=== PATIENT | male | born 1960 | race Caucasian/White ===

== ENCOUNTER 2019-12-24 19:43 | Emergency (ER) | payer OTHER, SELFPAY ==
[2019-12-24 19:45] VITALS: BP 122/86; PULSE 130; RESP 20; TEMP 37.2; O2SAT 97
--- NOTE | 2019-12-24 19:57 | DI.RAD.S_ITS ---
PROCEDURE: XR CHEST 1V INDICATIONS: SOB TECHNIQUE: One view of the chest was acquired. COMPARISON: [facility], CT, CT ABDOMEN PELVIS WO CON, 12/24/2019, 21:01. [facility], CR, CHEST 2 VIEW, 10/23/2017, 18:00. [facility], CR, CHEST 2 VIEW, 02/19/2016, 12:29. FINDINGS: Surgical changes and devices: None. Lungs and pleura: Lungs are clear. No pleural effusions or pneumothorax. Mediastinum: Mediastinal contours appear normal. Heart size is normal. Bones and chest wall: No suspicious bony lesions. Overlying soft tissues appear unremarkable. Left shoulder surgical anchor. Postsurgical change in the right shoulder. IMPRESSION: No acute cardiopulmonary abnormality. Dictated by: Judson Salcido M.D. on 12/24/2019 at 21:40 Approved by: Judson Salcido M.D. on 12/24/2019 at 21:41
--- NOTE | 2019-12-24 19:58 | DI.CT.S_ITS ---
PROCEDURE: CT ABDOMEN PELVIS WO CON INDICATIONS: LLQ pain, history of diverticulitis TECHNIQUE: Noncontrast 5 mm thick sections acquired from the diaphragms to the symphysis. 5 mm coronal and sagittal reformats were then performed. For radiation dose reduction, the following was used: automated exposure control, adjustment of mA and/or kV according to patient size. COMPARISON: [facility], CT, KIDNEY/ URETER/BLADDER, 07/07/2016, 15:07. FINDINGS: Image quality: Excellent. ABDOMEN: Lung bases: Lung bases are clear. Heart size is normal. Trace pericardial fluid. Small hiatal hernia. Solid organs: Liver is normal in size. Hepatic steatosis. Gallbladder is unremarkable. Pancreas is normal in contours. Spleen is normal in size. No adrenal nodules. Moderate left and mild right hydronephrosis. This is improved on the right compared to 2016. There is extensive cortical thickening most pronounced in the left kidney. Left renal collecting system is duplicated. Peritoneum and bowel: Moderate acute inflammatory change at the left colon, (2/41). No loculated fluid collection. There is extensive diverticulosis. No pneumoperitoneum. Nodes and vessels: No retroperitoneal or mesenteric adenopathy by size criteria. Small periportal lymph nodes are unchanged. Aorta and inferior vena cava are normal in caliber. Miscellaneous: Tiny fat-containing periumbilical hernia. PELVIS: Genitourinary: Thickening at the anterior urinary bladder. Irregular bladder contour versus bladder diverticuli. Tethered appearance may be due to prior suprapubic catheter. Miscellaneous: Small fat-containing inguinal hernias. No adenopathy. Bones: No suspicious bony lesions. No vertebral body compression fractures. IMPRESSION: 1. Moderate acute diverticulitis involving the left colon. No abscess. Extensive diverticulosis. Consider followup colonoscopy. 2. Chronic bilateral hydronephrosis. 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 Renal atrophy. 3. Irregular contour of the urinary bladder with mild thickening and tethering anteriorly. This may be related to prior suprapubic catheter. 4. Hepatic steatosis. Dictated by: Judson Salcido M.D. on 12/24/2019 at 21:28 Approved by: Judson Salcido M.D. on 12/24/2019 at 21:39
--- NOTE | 2019-12-24 20:06 | ED.ABDPAIN ---
HPI - Abdominal Pain <Kelle GoldSUNDAY - Last Filed: 12/24/19 22:13> General Chief Complaint: Abdominal Pain Stated Complaint: left sided pain Time Seen by Provider: 12/24/19 19:46 Source: patient Mode of arrival: Ambulatory Limitations: no limitations History of Present Illness HPI narrative: 59-year-old male with history of sarcoidosis, renal insufficiency, and diverticulosis with a few episodes of diverticulitis, presents emergency department for left lower quadrant pain that started 3 days ago. Patient states that he has an appointment scheduled for tomorrow, he talked to his doctor over the phone and they recommended that he be seen in the emergency department. He states the left lower quadrant pain has been worsening especially today. He states it is a dull aching 8/10 that is worse with movement and palpation. He states this feels similar to his past episodes of diverticulitis. Patient also reports shortness of breath over the past few years. He states he was in [facility] in July which resolved his respiratory problems. However, earlier this week he noticed increasing shortness of breath while walking and [employer]. Patient reported experiencing some intermittent chest tightness with his shortness of breath and wheezing, this resolved after he stopped walking and rested. Patient states he has had laboratory work done on Saturday due to his increasing shortness of breath. He usually takes albuterol inhaler which has helped, he has had to take it more recently due to moving back to [place]. He states that the humidity worsens his symptoms. Patient denies any other symptoms such as fever, dizziness, syncope, chest pain at this time, chest tightness at this time, nausea, vomiting, diarrhea, or any other concerns. Related Data Previous Rx's Medication Instructions Recorded ciprofloxacin HCl [Cipro] 500 mg PO BID #20 tab 07/07/16 hydrocodone-acetaminophen 0 tab PO Q6HP PRN #15 tab 07/07/16 ketorolac 10 mg PO Q6HP PRN #20 tab 07/07/16 ondansetron [Zofran ODT] 4 mg SUBLINGUAL Q6HP PRN #20 odt 07/07/16 levofloxacin [Levaquin] 750 mg PO QDAY 5 Days #0 tab 10/24/17 amoxicillin-pot clavulanate 1 tab PO BID 10 Days #20 tab 12/24/19 [Augmentin] Allergies Allergy/AdvReac Type Severity Reaction Status Date / Time lisinopril [LISINOPRIL] Allergy Unknown COUGH Unverified 12/04/17 11:46 Sulfa (Sulfonamide Allergy Unknown RASH Unverified 12/04/17 11:46 Antibiotics) [SULFA (SULFONAMIDE ANTIBIOTICS)] Review of Systems <SUNDAY Torres - Last Filed: 12/24/19 22:13> Review of Systems Narrative: REVIEW OF SYSTEMS: GENERAL: Denies fever, chills, malaise, or wt. loss. HENT: No head trauma. EYES: No vision changes. CARDIOVASCULAR: No chest pain. RESPIRATORY: Patient did report episodes of increasing shortness of breath and chest tightness with exertion over the past few weeks, is currently being worked up for this, see HPI. GASTROINTESTINAL: Complains of right lower quadrant abdominal pain, see HPI GENITOURINARY: No no flank pain. MUSCULOSKELETAL: No pain, weakness, or trauma. INTEGUMENTARY: No rash, lesions, or pruritus. NEURO: No numbness, tingling, memory loss, confusion, or headaches. PSYCH: No behavior or mood changes. Patient History <SUNDAY Torres - Last Filed: 12/24/19 22:13> Medical History No significant medical problems (Acute) Social History Smoking Status: Never smoker Smoking Status: Never smoker alcohol intake frequency: a few times a week Substance Use Type: does not use Exam <SUNDAY Torres - Last Filed: 12/24/19 22:13> Initial Vital Signs Initial Vital Signs: Vital Signs Temperature 98.9 F 12/24/19 19:45 Pulse Rate 130 H 12/24/19 19:45 Respiratory Rate 20 12/24/19 19:45 Blood Pressure 122/86 12/24/19 19:45 Pulse Oximetry 97 12/24/19 19:45 PHYSICAL EXAMINATION: GENERAL: Well groomed, alert, and cooperative. Answers questions promptly and appropriately. Vital signs noted. HENT: Normocephalic, atraumatic. Hearing intact. Oral mucosa is pink and moist. EYES: Conjunctiva pink, sclera white, no periorbital swelling. CARDIOVASCULAR: S1 and S2 sounds normal. Regular rate and rhythm, no murmurs, clicks, or bruits. No pedal edema. RESPIRATORY: Normal respiratory rate, trachea midline, airway patent. No stridor, nasal flaring or accessory muscle use. Expiratory wheezes noted at lung bases. Occasional dry cough noted throughout examination. GASTROINTESTINAL: Bowel sounds normoactive. Abdomen is soft and right lower quadrant tenderness noted. No organomegaly, no palpable masses. GENITALURINARY: No flank tenderness. MUSCULOSKELETAL: Normal gait and coordination. Equal tone and mass bilaterally. EXTREMITIES: CMS intact, no pedal edema. SKIN: Warm, dry, soft, appropriate color for ethnicity. No lesions, rashes, or wounds to visualized areas. NEURO: Alert and Oriented X 3. Good coordination. No ataxia, or sensory deficits, or cognitive issues. PSYCH: Appropriate affect and mood. <Andreas Potts DO - Last Filed: 12/25/19 00:43> Initial Vital Signs Initial Vital Signs: Vital Signs Temperature 98.9 F 12/24/19 19:45 Pulse Rate 130 H 12/24/19 19:45 Respiratory Rate 20 12/24/19 19:45 Blood Pressure 122/86 12/24/19 19:45 Pulse Oximetry 97 12/24/19 19:45 Course <SUNDAY Torres - Last Filed: 12/24/19 22:13> Course Course Narrative: Patient's GFR was noted to be 25, CT with contrast was such to CT non-contrast CT due to renal function. Orders Ordered: ED Orders 12/24/19 19:45 Urine Culture Stat Urine Microscopic Stat 12/24/19 19:57 XR chest 1V Stat EKG-12 Lead Stat 12/24/19 19:58 CT abdomen pelvis wo con Stat 12/24/19 20:00 Complete Blood Count AUTO DIFF Stat Lactate (Lactic Acid) Stat Procalcitonin Stat Troponin & CK Cardiac Panel Stat 12/24/19 20:23 Comprehensive Metabolic Panel Stat Lipase Stat Discontinued Medications Amoxicillin/Clavulanate Potassium (Augmentin 875-125 Mg) 1 tab PO NOW ONE Stop: 12/24/19 22:04 Last Admin: 12/24/19 22:45 Dose: 1 tab Documented by: KIM Sodium Chloride (Normal Saline 0.9%) 1,000 mls @ 1,000 mls/hr IV BOLUS ONE Stop: 12/24/19 20:56 Last Infusion: 12/24/19 21:25 Dose: 0 mls/hr Documented by: Admin: 12/24/19 20:12 Dose: 1,000 mls/hr Documented by: OMID Consultations Consultation #1: Patient staffed with DR. Potts, discussed test results and plan of care. Vital Signs Vital signs: Vital Signs - 8 hr 12/24/19 19:45 12/24/19 22:45 Temperature 98.9 F Pulse Rate 130 H 91 H Respiratory Rate 20 21 Blood Pressure 122/86 Blood Pressure [Right Arm] 142/79 H Pulse Oximetry 97 98 <Andreas Potts DO - Last Filed: 12/25/19 00:43> Orders Ordered: ED Orders 12/24/19 19:45 Urine Culture Stat Urine Microscopic Stat 12/24/19 19:57 XR chest 1V Stat EKG-12 Lead Stat 12/24/19 19:58 CT abdomen pelvis wo con Stat 12/24/19 20:00 Complete Blood Count AUTO DIFF Stat Lactate (Lactic Acid) Stat Procalcitonin Stat Troponin & CK Cardiac Panel Stat 12/24/19 20:23 Comprehensive Metabolic Panel Stat Lipase Stat Discontinued Medications Amoxicillin/Clavulanate Potassium (Augmentin 875-125 Mg) 1 tab PO NOW ONE Stop: 12/24/19 22:04 Last Admin: 12/24/19 22:45 Dose: 1 tab Documented by: KIM Sodium Chloride (Normal Saline 0.9%) 1,000 mls @ 1,000 mls/hr IV BOLUS ONE Stop: 12/24/19 20:56 Last Infusion: 12/24/19 21:25 Dose: 0 mls/hr Documented by: Admin: 12/24/19 20:12 Dose: 1,000 mls/hr Documented by: OMID Vital Signs Vital signs: Vital Signs - 8 hr 12/24/19 19:45 12/24/19 22:45 Temperature 98.9 F Pulse Rate 130 H 91 H Respiratory Rate 20 21 Blood Pressure 122/86 Blood Pressure [Right Arm] 142/79 H Pulse Oximetry 97 98 MDM - Abdominal Pain <SUNDAY Torres - Last Filed: 12/24/19 22:13> Medical Records Attestation: I reviewed the patient's medical records. Lab Data Attestation: I reviewed the patient's lab results. Result diagrams: 12/24/19 20:00 12/24/19 20:23 Labs: Lab Results 12/24/19 12/24/19 12/24/19 Range/Units 19:45 20:00 20:00 WBC 10.3 (4.5-11.0) X10^3/uL RBC 4.19 L (4.5-5.9) X10^6/uL Hgb 14.1 (13.5-17.5) g/dL Hct 41.1 (41-53) % MCV 98.1 (80-100) fL MCH 33.6 (26-34) PG MCHC 34.3 (30-36) % RDW 13.6 (11.6-14.8) % Plt Count 235 (150-400) X10^3/uL Neut % (Auto) 63.5 (50-75) % Lymph % (Auto) 19.9 L (25-40) % [place] % (Auto) 11.9 (3-14) % Eos % (Auto) 3.8 (2-4) % Baso % (Auto) 0.9 (0-2) % Neut # (Auto) 6600 (1389-1453) /uL Lymph # (Auto) 2100 (9548-8945) /uL [place] # (Auto) 1200 H (0-900) /uL Eos # (Auto) 400 (0-450) /uL Baso # (Auto) 100 (0-100) /uL Sodium (137-145) mmol/L Potassium (3.4-5.1) mmol/L Chloride (98-107) mmol/L Carbon Dioxide (22-32) mmol/L BUN (9-20) mg/dL Creatinine (0.66-1.25) mg/dL Estimated GFR (>60) mL/min BUN/Creatinine Ratio (6-22) Glucose (70-100) mg/dL Lactate (0.7-2.1) mmol/L Calcium (8.4-10.2) mg/dL Total Bilirubin (0.2-1.3) mg/dL AST (17-59) IU/L ALT (<50) IU/L Alkaline Phosphatase (38-126) U/L Total Creatine Kinase 21 L (55-170) U/L CK-MB (CK-2) TNP CK-MB (CK-2) Rel Index TNP Troponin I < 0.012 (0.01-0.034) ng/mL Total Protein (6.3-8.2) g/dL Albumin (3.5-5.0) g/dL Globulin (1.7-4.1) g/dL Albumin/Globulin Ratio (1.0-2.8) Lipase (23-300) U/L Procalcitonin (<0.5) ng/mL Urine RBC None seen (0-5/HPF) Urine WBC 10-30/hpf H (0-5/HPF) Ur Squamous Epith Cells 0-1 /hpf (0-5/HPF) Urine Bacteria None seen (None) Hyaline Casts 1-5/lpf (None) Ur Culture Indicated? Specimen cultured 12/24/19 12/24/19 12/24/19 Range/Units 20:00 20:00 20:23 WBC (4.5-11.0) X10^3/uL RBC (4.5-5.9) X10^6/uL Hgb (13.5-17.5) g/dL Hct (41-53) % MCV (80-100) fL MCH (26-34) PG MCHC (30-36) % RDW (11.6-14.8) % Plt Count (150-400) X10^3/uL Neut % (Auto) (50-75) % Lymph % (Auto) (25-40) % [place] % (Auto) (3-14) % Eos % (Auto) (2-4) % Baso % (Auto) (0-2) % Neut # (Auto) (5238-5947) /uL Lymph # (Auto) (8123-5889) /uL [place] # (Auto) (0-900) /uL Eos # (Auto) (0-450) /uL Baso # (Auto) (0-100) /uL Sodium 142 (137-145) mmol/L Potassium 4.4 (3.4-5.1) mmol/L Chloride 109 H (98-107) mmol/L Carbon Dioxide 23 (22-32) mmol/L BUN 43 H (9-20) mg/dL Creatinine 2.62 H (0.66-1.25) mg/dL Estimated GFR 25.2 L (>60) mL/min BUN/Creatinine Ratio 16.4 (6-22) Glucose 124 H (70-100) mg/dL Lactate 0.9 (0.7-2.1) mmol/L Calcium 9.6 (8.4-10.2) mg/dL Total Bilirubin 0.6 (0.2-1.3) mg/dL AST 36 (17-59) IU/L ALT 42 (<50) IU/L Alkaline Phosphatase 67 (38-126) U/L Total Creatine Kinase (55-170) U/L CK-MB (CK-2) CK-MB (CK-2) Rel Index Troponin I (0.01-0.034) ng/mL Total Protein 7.6 (6.3-8.2) g/dL Albumin 4.3 (3.5-5.0) g/dL Globulin 3.3 (1.7-4.1) g/dL Albumin/Globulin Ratio 1.3 (1.0-2.8) Lipase 98 (23-300) U/L Procalcitonin 0.11 (<0.5) ng/mL Urine RBC (0-5/HPF) Urine WBC (0-5/HPF) Ur Squamous Epith Cells (0-5/HPF) Urine Bacteria (None) Hyaline Casts (None) Ur Culture Indicated? Point of care testing: Urine Dip Bedside Urine Glucose Negative Bedside Urine Bilirubin - Negative Bedside Urine Ketone - Negative Urine Specific [place] 1.015 Bedside Urine Occult Blood +/- Bedside Urine pH 6.0 Bedside Urine Protein + 30 Bedside Urine Urobilinogen - Negative Bedside Urine Nitrite - Negative Bedside Urine Leukocytes + 70 Esterase Imaging Data Chest x-ray: Radiologist's Impression: [address] [address] XRay Report Signed Patient: Duc Lindo [facility]#: [id number] : 1960Acct:[id number] Age/Sex: 59 / MDate of Service: 12/24/19 Loc: ED Accession Number: [id number] Procedure: XR chest 1V Ordering Provider: Kelle Gold PROCEDURE: XR CHEST 1V INDICATIONS: SOB TECHNIQUE: One view of the chest was acquired. COMPARISON: [facility], CT, CT ABDOMEN PELVIS WO CON, 12/24/2019, 21:01. [facility], CR, CHEST 2 VIEW, 10/23/2017, 18:00. [facility], , CHEST 2 VIEW, 02/19/2016, 12:29. FINDINGS: Surgical changes and devices: None. Lungs and pleura: Lungs are clear. No pleural effusions or pneumothorax. Mediastinum: Mediastinal contours appear normal. Heart size is normal. Bones and chest wall: No suspicious bony lesions. Overlying soft tissues appear unremarkable. Left shoulder surgical anchor. Postsurgical change in the right shoulder. IMPRESSION: No acute cardiopulmonary abnormality. Dictated by: Judson Salcido M.D. on 12/24/2019 at 21:40 Approved by: Judson Salcido M.D. on 12/24/2019 at 21:41 CT scan - abdomen/pelvis: Radiologist's Impression: [address] [address] [address] Scan Report Signed Patient: Duc Lindo [facility]#: [id number] : 1960Acct:[id number] Age/Sex: 59 / MDate of Service: 12/24/19 Loc: ED Accession Number: [id number] Procedure: CT abdomen pelvis wo con Ordering Provider: Kelle Gold PROCEDURE: CT ABDOMEN PELVIS WO CON INDICATIONS: LLQ pain, history of diverticulitis TECHNIQUE: Noncontrast 5 mm thick sections acquired from the diaphragms to the symphysis. 5 mm coronal and sagittal reformats were then performed. For radiation dose reduction, the following was used: automated exposure control, adjustment of mA and/or kV according to patient size. COMPARISON: [facility], CT, KIDNEY/ URETER/BLADDER, 07/07/2016, 15:07. FINDINGS: Image quality: Excellent. ABDOMEN: Lung bases: Lung bases are clear. Heart size is normal. Trace pericardial fluid. Small hiatal hernia. Solid organs: Liver is normal in size. Hepatic steatosis. Gallbladder is unremarkable. Pancreas is normal in contours. Spleen is normal in size. No adrenal nodules. Moderate left and mild right hydronephrosis. This is improved on the right compared to 2016. There is extensive cortical thickening most pronounced in the left kidney. Left renal collecting system is duplicated. Peritoneum and bowel: Moderate acute inflammatory change at the left colon, (). No loculated fluid collection. There is extensive diverticulosis. No pneumoperitoneum. Nodes and vessels: No retroperitoneal or mesenteric adenopathy by size criteria. Small periportal lymph nodes are unchanged. Aorta and inferior vena cava are normal in caliber. Miscellaneous: Tiny fat-containing periumbilical hernia. PELVIS: Genitourinary: Thickening at the anterior urinary bladder. Irregular bladder contour versus bladder diverticuli. Tethered appearance may be due to prior suprapubic catheter. Miscellaneous: Small fat-containing inguinal hernias. No adenopathy. Bones: No suspicious bony lesions. No vertebral body compression fractures. IMPRESSION: 1. Moderate acute diverticulitis involving the left colon. No abscess. Extensive diverticulosis. Consider followup colonoscopy. 2. Chronic bilateral hydronephrosis. 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 Renal atrophy. 3. Irregular contour of the urinary bladder with mild thickening and tethering anteriorly. This may be related to prior suprapubic catheter. 4. Hepatic steatosis. Dictated by: Judson Salcido M.D. on 12/24/2019 at 21:28 Approved by: Judson Salcido M.D. on 12/24/2019 at 21:39 ECG Data Interpretation: Sinus tachycardia, rate 118, NJ interval 172, QTC 423. No ST elevation or ST depression. No T-wave abnormality. No ectopy. EKG also viewed by Dr. Potts. [facility] Narrative Medical decision making narrative: 59-year-old male with a history of diverticulosis and diverticulitis, sarcoidosis, presents emergency department reporting of left lower quadrant pain starting [address] shows diverticulitis without perforation. Initially tachycardic, this improved after administration of fluids and I suspect this is most likely due to the infectious process. Patient's white count is 10.3, patient is tolerating p.o. intake without vomiting and is a candidate for outpatient treatment. Patient did report increasing shortness of breath and wheezing, chest x-ray negative for any signs of pneumonia patient was swabbed for COVID-19 decrease to increasing shortness of breath and increased wrist with sarcoidosis. Patient does report relief of symptoms after administration of albuterol. He has an appointment tomorrow to follow up with his primary care provider and discuss further management of his shortness of breath. Less likely infectious process due to lack of a pasty seen on x-ray, less likely cardiac in nature as troponin is negative, EKG is without acute changes, and patient reports chest tightness with wheezing versus chest pain or any other symptoms such as syncope or dizziness. However, patient was given very strict return precautions for new or worsening symptoms. Patient agrees to plan of care verbalized understanding. <Andreas Potts DO - Last Filed: 12/25/19 00:43> Lab Data Labs: Lab Results 12/24/19 12/24/19 12/24/19 Range/Units 19:45 20:00 20:00 WBC 10.3 (4.5-11.0) X10^3/uL RBC 4.19 L (4.5-5.9) X10^6/uL Hgb 14.1 (13.5-17.5) g/dL Hct 41.1 (41-53) % MCV 98.1 (80-100) fL MCH 33.6 (26-34) PG MCHC 34.3 (30-36) % RDW 13.6 (11.6-14.8) % Plt Count 235 (150-400) X10^3/uL Neut % (Auto) 63.5 (50-75) % Lymph % (Auto) 19.9 L (25-40) % [place] % (Auto) 11.9 (3-14) % Eos % (Auto) 3.8 (2-4) % Baso % (Auto) 0.9 (0-2) % Neut # (Auto) 6600 (8983-7528) /uL Lymph # (Auto) 2100 (1072-6719) /uL [place] # (Auto) 1200 H (0-900) /uL Eos # (Auto) 400 (0-450) /uL Baso # (Auto) 100 (0-100) /uL Sodium (137-145) mmol/L Potassium (3.4-5.1) mmol/L Chloride (98-107) mmol/L Carbon Dioxide (22-32) mmol/L BUN (9-20) mg/dL Creatinine (0.66-1.25) mg/dL Estimated GFR (>60) mL/min BUN/Creatinine Ratio (6-22) Glucose (70-100) mg/dL Lactate (0.7-2.1) mmol/L Calcium (8.4-10.2) mg/dL Total Bilirubin (0.2-1.3) mg/dL AST (17-59) IU/L ALT (<50) IU/L Alkaline Phosphatase (38-126) U/L Total Creatine Kinase 21 L (55-170) U/L CK-MB (CK-2) TNP CK-MB (CK-2) Rel Index TNP Troponin I < 0.012 (0.01-0.034) ng/mL Total Protein (6.3-8.2) g/dL Albumin (3.5-5.0) g/dL Globulin (1.7-4.1) g/dL Albumin/Globulin Ratio (1.0-2.8) Lipase (23-300) U/L Procalcitonin (<0.5) ng/mL Urine RBC None seen (0-5/HPF) Urine WBC 10-30/hpf H (0-5/HPF) Ur Squamous Epith Cells 0-1 /hpf (0-5/HPF) Urine Bacteria None seen (None) Hyaline Casts 1-5/lpf (None) Ur Culture Indicated? Specimen cultured 12/24/19 12/24/19 12/24/19 Range/Units 20:00 20:00 20:23 WBC (4.5-11.0) X10^3/uL RBC (4.5-5.9) X10^6/uL Hgb (13.5-17.5) g/dL Hct (41-53) % MCV (80-100) fL MCH (26-34) PG MCHC (30-36) % RDW (11.6-14.8) % Plt Count (150-400) X10^3/uL Neut % (Auto) (50-75) % Lymph % (Auto) (25-40) % [place] % (Auto) (3-14) % Eos % (Auto) (2-4) % Baso % (Auto) (0-2) % Neut # (Auto) (0965-1197) /uL Lymph # (Auto) (6514-1944) /uL [place] # (Auto) (0-900) /uL Eos # (Auto) (0-450) /uL Baso # (Auto) (0-100) /uL Sodium 142 (137-145) mmol/L Potassium 4.4 (3.4-5.1) mmol/L Chloride 109 H (98-107) mmol/L Carbon Dioxide 23 (22-32) mmol/L BUN 43 H (9-20) mg/dL Creatinine 2.62 H (0.66-1.25) mg/dL Estimated GFR 25.2 L (>60) mL/min BUN/Creatinine Ratio 16.4 (6-22) Glucose 124 H (70-100) mg/dL Lactate 0.9 (0.7-2.1) mmol/L Calcium 9.6 (8.4-10.2) mg/dL Total Bilirubin 0.6 (0.2-1.3) mg/dL AST 36 (17-59) IU/L ALT 42 (<50) IU/L Alkaline Phosphatase 67 (38-126) U/L Total Creatine Kinase (55-170) U/L CK-MB (CK-2) CK-MB (CK-2) Rel Index Troponin I (0.01-0.034) ng/mL Total Protein 7.6 (6.3-8.2) g/dL Albumin 4.3 (3.5-5.0) g/dL Globulin 3.3 (1.7-4.1) g/dL Albumin/Globulin Ratio 1.3 (1.0-2.8) Lipase 98 (23-300) U/L Procalcitonin 0.11 (<0.5) ng/mL Urine RBC (0-5/HPF) Urine WBC (0-5/HPF) Ur Squamous Epith Cells (0-5/HPF) Urine Bacteria (None) Hyaline Casts (None) Ur Culture Indicated? Point of care testing: Urine Dip Bedside Urine Glucose Negative Bedside Urine Bilirubin - Negative Bedside Urine Ketone - Negative Urine Specific [place] 1.015 Bedside Urine Occult Blood +/- Bedside Urine pH 6.0 Bedside Urine Protein + 30 Bedside Urine Urobilinogen - Negative Bedside Urine Nitrite - Negative Bedside Urine Leukocytes + 70 Esterase Discharge Plan Departure Patient Disposition: Home Clinical Impression: Diverticulitis Discharge Date/Time: 12/24/19 23:00 Instructions: DI for Diverticulitis Activity Restrictions/Additional Instructions: Thank you for entrusting me with your care today. As discussed, your CT shows diverticulitis, I prescribed an antibiotic, please take this as directed. Your chest x-ray and laboratory work are non-remarkable. I suspect your increased shortness of breath is due to your sarcoidosis, however, be thorough we have swab you for COVID-19. You have been tested for COVID-19. This test may take 4-5 days for results to return, we will call you with these results. Please remain in quarantine with self isolation at home for 3 days after your symptoms have completely resolved. Drink lots of fluids, take Tylenol for fever, get extra rest, clean all surfaces, cover your cough, wash your hands frequently, and avoid sharing any personal items. If you need to seek medical care, please call the clinic or the emergency department before your arrival. Please follow-up with your primary care provider as scheduled for tomorrow. Return emergency department for any new or worsening symptoms such as worsening pain, uncontrollable vomiting, high fevers, chest pain, shortness of breath, or any other concerns. Prescriptions: New amoxicillin-pot clavulanate [Augmentin] 875-125 mg tablet 1 tab PO BID 10 Days Qty: 20 RF: 0 No Action hydrocodone-acetaminophen 5 MG/325 MG tablet 0 tab PO Q6HP PRNQty: 15 RF: 0 ciprofloxacin HCl [Cipro] 500 MG tablet 500 mg PO BID Qty: 20 RF: 0 ketorolac 10 MG tablet 10 mg PO Q6HP PRNQty: 20 RF: 0 ondansetron [Zofran ODT] 4 MG tablet,disintegrating 4 mg Sublingual Q6HP PRNQty: 20 RF: 0 levofloxacin [Levaquin] 750 MG tablet 750 mg PO QDAY 5 Days Qty: 0 RF: 0 Referrals: Aaron Cardenas [Primary Care Provider] - <Andreas Potts DO - Last Filed: 12/25/19 00:43> [facility] ED Attending Sarahiature Attestation: I was immediately available in the department for consultation. This documentation has been reviewed and I agree with assessment and plan. Supervised by Andreas Potts DO
[2019-12-24 20:08] LABS: Bacteria Urine None Seen; RBC Urine None Seen (0-5/HPF)
[2019-12-24 20:09] LABS: Add Manual Diff / Slide Review NO; Basophils Absolute Auto 100 /uL (0-100); Basophils Percent Auto 0.9 % (0-2); Eosinophils Absolute Auto 400 /uL (0-450); Eosinophils Percent Auto 3.8 % (2-4); Hematocrit 41.1 % (41-53); Hemoglobin 14.1 g/dL (13.5-17.5); Lymphocytes Absolute Auto 2100 /uL (1100-4500); Lymphocytes Percent Auto 19.9 % (25-40); Mean Corpuscular HGB Conc 34.3 % (30-36); Mean Corpuscular Hemoglobin 33.6 PG (26-34); Mean Corpuscular Volume 98.1 fL (80-100); Monocytes Absolute Auto 1200 /uL (0-900); Monocytes Percent Auto 11.9 % (3-14); Neutrophils Absolute Auto 6600 /uL (1500-7000); Neutrophils Percent Auto 63.5 % (50-75); Platelet Count 235 X10^3/uL (150-400); Red Blood Cell Count 4.19 X10^6/uL (4.5-5.9); Red Cell Distribution Width 13.6 % (11.6-14.8); White Blood Cell Count 10.3 X10^3/uL (4.5-11.0)
[2019-12-24] MEDS: SODIUM CHLORIDE 0.9% 1,000 ML 1000 ML IV (20:12)
[2019-12-24 20:22] LABS: Lactate (Lactic Acid) 0.9 mmol/L (0.7-2.1)
[2019-12-24 20:23] LABS: Culture Indicated Urine Specimen Cultured; Hyaline Casts Urine 1-5/LPF; Squamous Epithelial Cell Urine 0-1 /HPF (0-5/HPF); WBC Urine 10-30/HPF (0-5/HPF)
[2019-12-24 20:41] LABS: Procalcitonin 0.11 ng/mL (<0.5)
[2019-12-24 20:46] LABS: Creatine Kinase 21 U/L (55-170)
[2019-12-24 20:47] LABS: Alanine Aminotransferase 42 IU/L (<50); Albumin 4.3 g/dL (3.5-5.0); Albumin Globulin Ratio 1.3 (1.0-2.8); Alkaline Phosphatase 67 U/L (38-126); Aspartate Aminotransferase 36 IU/L (17-59); BUN Creatinine Ratio 16.4 (6-22); Bilirubin Total 0.6 mg/dL (0.2-1.3); Blood Urea Nitrogen 43 mg/dL (9-20); Calcium 9.6 mg/dL (8.4-10.2); Carbon Dioxide 23 mmol/L (22-32); Chloride 109 mmol/L (98-107); Estimated Glomerular Filt Rate 25.2 mL/min (>60); Globulin 3.3 g/dL (1.7-4.1); Glucose 124 mg/dL (70-100); HEMOLYSIS < 15 (0-50); Lipase 98 U/L (23-300); Potassium 4.4 mmol/L (3.4-5.1); Sodium 142 mmol/L (137-145); Total Protein 7.6 g/dL (6.3-8.2)
[2019-12-24 20:59] LABS: Troponin I < 0.012 ng/mL (0.01-0.034)
[2019-12-24 22:45] VITALS: BP 142/79; PULSE 91; RESP 21; O2SAT 98
[2019-12-24] MEDS: AMOXICILLIN/CLAV 875/125 MG 1 TAB PO (22:45)
[2019-12-25 16:47] LABS: COVID19 Sendout Not Detected (Not Detect)
== END 2019-12-24 23:00 | disposition home or self-care (01) ==
PROVIDERS: Emergency Provider Nurse Practitioner; Family Provider Family Medicine; PCP Ophthalmology
DX: K57.90 Diverticulosis of intestine, part unspecified, without perforation or abscess without bleeding (principal); R06.02 Shortness of breath; R00.0 Tachycardia, unspecified; R07.89 Other chest pain
CPT/HCPCS: 36415; 71045; 74176; 80053; 81003; 81015; 82550; 83605; 83690; 84145; 84484; 85025; 87086; 87635; 93005; 96360; 99284

== ENCOUNTER 2019-12-26 15:53 | Emergency (ER) | payer OTHER, SELFPAY ==
[2019-12-26 16:34] VITALS: BP 146/79; PULSE 92; RESP 14; TEMP 36.5; O2SAT 97; BMI 26.4
[2019-12-26 17:40] LABS: RBC Urine 0-1/HPF (0-5/HPF); WBC Urine 30-100/HPF (0-5/HPF)
[2019-12-26 17:41] LABS: Amorphous Sediment Urine 1+; Bacteria Urine Few (2-10); Culture Indicated Urine Specimen Cultured; Mucus Urine 1+ (Negative); Squamous Epithelial Cell Urine 0-1 /HPF (0-5/HPF)
--- NOTE | 2019-12-26 17:52 | DI.CT.S_ITS ---
PROCEDURE: CT ABDOMEN PELVIS WO CON INDICATIONS: lt lower abd pain TECHNIQUE: Noncontrast 5 mm thick sections acquired from the diaphragms to the symphysis. 5 mm coronal and sagittal reformats were then performed. For radiation dose reduction, the following was used: automated exposure control, adjustment of mA and/or kV according to patient size. COMPARISON: [facility], CT, CT ABDOMEN PELVIS WO CON, 12/24/2019, 21:01. [facility], CT, KIDNEY/ URETER/BLADDER, 07/07/2016, 15:07. [facility], CT, ABD/PELVIS W/O CON (PNL), 03/19/2013, 12:39. FINDINGS: Image quality: Diagnostic. ABDOMEN: Lung bases: Lung bases are clear. Heart size is normal. Solid organs: Severe left-sided hydronephrosis with associated parenchymal thinning is identified, which is similar to the previous examination. Associated severe hydroureter on the left is identified that extends to the level of the vesicoureteral junction. 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 There is moderate right-sided hydronephrosis with corresponding hydroureter. There may be parapelvic cysts present bilaterally. The overall appearance of the kidneys is similar to the prior study. Punctate bilateral renal calculi are present. No ureteral calculi are identified. The liver and spleen are unchanged. The adrenals and pancreas are within normal limits. Peritoneum and bowel: There may be a very small hiatal hernia. The stomach is otherwise unremarkable. The small bowel loops are nondilated. The appendix is well-visualized and normal. Extensive colonic diverticulosis is identified. There is moderate thickening of the wall of the descending colon with prominent surrounding inflammation. A small amount of fluid appears to be present within the left paracolic gutter. The degree of inflammation is grossly similar to the previous exam. There is no loculated fluid collection or free air. There may be a very small fat containing periumbilical hernia. Nodes and vessels: No retroperitoneal or mesenteric adenopathy by size criteria. Aorta and inferior vena cava are normal in caliber. There is aortic and iliac artery atherosclerosis. Bones: No acute fracture or suspicious osseous lesion is identified. Degenerative changes of the L-spine are similar to the prior study. PELVIS: Genitourinary: Irregularity of the wall of the urinary bladder is identified with patchy areas of mild wall thickening. The prostate gland is not rectally apparent. There is prominent dilatation of the seminal vesicles. Miscellaneous: Small bilateral fat-containing inguinal hernias appear to be present. No lymphadenopathy is appreciated. No free fluid or loculated fluid collection is appreciated. Bones: No suspicious bony lesions. No acute pelvic fractures are present. IMPRESSION: 1. Descending colonic diverticulitis is similar to the previous exam. There is no bowel obstruction or abscess. A minimal amount of reactive free fluid is identified within the adjacent left paracolic gutter. A dedicated colonoscopy is recommended when the patient's acute symptoms have resolved to exclude an underlying lesion. 2. Moderate to severe hydronephrosis is similar to the previous examination (left greater than right). 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 3. Lobular appearance of the urinary bladder with patchy areas of wall thickening probably is related to either neurogenic bladder or chronic bladder outlet obstruction. 4. Nonobstructing bilateral renal calculi. 5. Normal appendix. Dictated by: Deshaun Laureano M.D. on 12/26/2019 at 17:15 Approved by: Deshaun Laureano M.D. on 12/26/2019 at 17:21
--- NOTE | 2019-12-26 17:56 | ED_ITS ---
HPI - Abdominal Pain <Mauro Hernandez MD - Last Filed: 12/26/19 18:01> General Chief Complaint: Abdominal Pain Stated Complaint: severe left side abdominal pain with nausea Time Seen by Provider: 12/26/19 17:42 Source: patient Mode of arrival: Ambulatory Limitations: no limitations History of Present Illness HPI narrative: Patient here for left lower quadrant pain. Seen here [address] scan shows diverticulitis. History of diverticulitis in the past. Last admission 7 years ago. Has been doing well until recently. No fever chills. Patient states pain is worse than 2 days ago. No blood urine or stools. No fever chills pain does not radiate. No chest pain no back pain. MD complaint: abdominal pain Related Data Previous Rx's Medication Instructions Recorded ciprofloxacin HCl [Cipro] 500 mg PO BID #20 tab 07/07/16 hydrocodone-acetaminophen 0 tab PO Q6HP PRN #15 tab 07/07/16 ketorolac 10 mg PO Q6HP PRN #20 tab 07/07/16 ondansetron [Zofran ODT] 4 mg SUBLINGUAL Q6HP PRN #20 odt 07/07/16 levofloxacin [Levaquin] 750 mg PO QDAY 5 Days #0 tab 10/24/17 amoxicillin-pot clavulanate 1 tab PO BID 10 Days #20 tab 12/24/19 [Augmentin] tramadol [Ultram] 50 mg PO Q6H PRN #10 tab 12/26/19 Allergies Allergy/AdvReac Type Severity Reaction Status Date / Time lisinopril [LISINOPRIL] Allergy Unknown COUGH Verified 12/26/19 16:34 Sulfa (Sulfonamide Allergy Unknown RASH Verified 12/26/19 16:34 Antibiotics) [SULFA (SULFONAMIDE ANTIBIOTICS)] NSAIDS (Non-Steroidal Allergy Verified 12/26/19 16:34 Anti-Inflamma Review of Systems <Mauro Hernandez MD - Last Filed: 12/26/19 18:01> Review of Systems Narrative: GENERAL: Denies chills, fatigue, malaise, fever, sweats. HEENT: Denies sinus pain, ear pain, sore throat, difficulty swallowing, dizziness. RESPIRATORY: Denies dyspnea, cough, wheezing, hemoptysis, sputum. CARDIOVASCULAR: Denies chest pain, palpitations, orthopnea, edema, GASTROINTESTINAL: No nausea vomiting diarrhea or constipation. No melena. Has pain left lower quadrant. : Denies dysuria, frequency, incontinence, hematuria, urinary retention. MUSCULOSKELETAL: denies weakness, joint pain, or bony pain SKIN: Denies rash, skin lesions, or other NEUROLOGIC: Denies weakness, headache, numbness, change in speech, confusion, seizures, incoordination. PSYCHIATRIC: No concerning psychosocial issues. 12 point review of systems is negative except for those stated above ROS Unobtainable: All systems reviewed & are unremarkable except as noted in HPI and below Patient History <Mauro Hernandez MD - Last Filed: 12/26/19 18:01> Medical History No significant medical problems (Acute) Social History Smoking Status: Never smoker Smoking Status: Never smoker alcohol intake frequency: a few times a week Substance Use Type: does not use Exam <Mauro Hernandez MD - Last Filed: 12/26/19 18:01> Narrative Exam Narrative: GENERAL: [59] year old patient appears stated age. Well- nourished, well-developed patient, in no distress, not toxic HEAD: Atraumatic. Normocephalic. EYES: Pupils equal round and reactive. Extraocular motions intact. No scleral icterus. No injection or drainage. ENT: Nose without bleeding, purulent drainage. Throat without erythema, tonsillar hypertrophy or exudate. Airway patent. NECK: Trachea midline. Non tender CARDIOVASCULAR: Regular rate and rhythm without murmurs, gallops, or rubs. RESPIRATORY: Clear to auscultation. Breath sounds equal bilaterally. No wheezes, rales, or rhonchi. GASTROINTESTINAL: Abdomen soft, tender to touch left lower quadrant. No perito bibi signs. Normal bowel sounds. Mild distention.. EXTREMITIES: No edema or joint tenderness. BACK: Nontender without deformity or crepitance. No flank tenderness. NEURO: AOx3. SKIN: No rash or erythema of visible areas Initial Vital Signs Initial Vital Signs: Vital Signs Temperature 97.7 F 12/26/19 16:34 Pulse Rate 92 H 12/26/19 16:34 Respiratory Rate 14 12/26/19 16:34 Blood Pressure 146/79 H 12/26/19 16:34 Pulse Oximetry 97 12/26/19 16:34 <Brandan Agee DO - Last Filed: 12/26/19 19:14> Initial Vital Signs Initial Vital Signs: Vital Signs Temperature 97.7 F 12/26/19 16:34 Pulse Rate 92 H 12/26/19 16:34 Respiratory Rate 14 12/26/19 16:34 Blood Pressure 146/79 H 12/26/19 16:34 Pulse Oximetry 97 12/26/19 16:34 Course <Mauro Hernandez MD - Last Filed: 12/26/19 18:01> Orders Ordered: ED Orders 12/26/19 17:14 Urine Culture Stat Urine Microscopic Stat 12/26/19 17:52 CT abdomen pelvis wo con Stat 12/26/19 17:55 Complete Blood Count AUTO DIFF Stat Comprehensive Metabolic Panel Stat Lipase Stat Discontinued Medications Sodium Chloride (Normal Saline 0.9%) 1,000 mls @ 1,000 mls/hr IV BOLUS ONE Stop: 12/26/19 18:51 Last Admin: 12/26/19 18:57 Dose: Not Given Documented by: GALILEO Reevaluation(s) Reevaluation #1: Time 6:[address] agee...CT is pending..pt here for re check of previous visit Vital Signs Vital signs: Vital Signs - 8 hr 12/26/19 16:34 12/26/19 18:22 Temperature 97.7 F Pulse Rate 92 H 65 Respiratory Rate 14 18 Blood Pressure 146/79 H Blood Pressure [Right Arm] 171/89 H Pulse Oximetry 97 98 <Brandan Agee DO - Last Filed: 12/26/19 19:14> Orders Ordered: ED Orders 12/26/19 17:14 Urine Culture Stat Urine Microscopic Stat 12/26/19 17:52 CT abdomen pelvis wo con Stat 12/26/19 17:55 Complete Blood Count AUTO DIFF Stat Comprehensive Metabolic Panel Stat Lipase Stat Discontinued Medications Sodium Chloride (Normal Saline 0.9%) 1,000 mls @ 1,000 mls/hr IV BOLUS ONE Stop: 12/26/19 18:51 Last Admin: 12/26/19 18:57 Dose: Not Given Documented by: GALILEO Vital Signs Vital signs: Vital Signs - 8 hr 12/26/19 16:34 12/26/19 18:22 Temperature 97.7 F Pulse Rate 92 H 65 Respiratory Rate 14 18 Blood Pressure 146/79 H Blood Pressure [Right Arm] 171/89 H Pulse Oximetry 97 98 MDM - Abdominal Pain <Mauro Hernandez MD - Last Filed: 12/26/19 18:01> Differential Diagnosis Differential diagnosis: Likely abdominal pain, acute appendicitis, diverticulitis, small bowel obstruction and other (Perforated bowel) Lab Data Result diagrams: 12/26/19 17:55 12/26/19 17:55 Labs: Lab Results 12/26/19 12/26/19 12/26/19 Range/Units 17:14 17:55 17:55 WBC 9.1 (4.5-11.0) X10^3/uL RBC 4.21 L (4.5-5.9) X10^6/uL Hgb 14.6 (13.5-17.5) g/dL Hct 40.7 L (41-53) % MCV 96.7 (80-100) fL MCH 34.6 H (26-34) PG MCHC 35.8 (30-36) % RDW 13.1 (11.6-14.8) % Plt Count 225 (150-400) X10^3/uL Neut % (Auto) 71.7 (50-75) % Lymph % (Auto) 14.7 L (25-40) % Sunflower % (Auto) 8.8 (3-14) % Eos % (Auto) 3.7 (2-4) % Baso % (Auto) 1.1 (0-2) % Neut # (Auto) 6500 (9983-9981) /uL Lymph # (Auto) 1300 (0955-6117) /uL Sunflower # (Auto) 800 (0-900) /uL Eos # (Auto) 300 (0-450) /uL Baso # (Auto) 100 (0-100) /uL Sodium 139 (137-145) mmol/L Potassium 4.9 (3.4-5.1) mmol/L Chloride 104 (98-107) mmol/L Carbon Dioxide 22 (22-32) mmol/L BUN 40 H (9-20) mg/dL Creatinine 2.38 H (0.66-1.25) mg/dL Estimated GFR 28.1 L (>60) mL/min BUN/Creatinine Ratio 16.8 (6-22) Glucose 89 (70-100) mg/dL Calcium 9.5 (8.4-10.2) mg/dL Total Bilirubin 1.0 (0.2-1.3) mg/dL AST 31 (17-59) IU/L ALT 43 (<50) IU/L Alkaline Phosphatase 75 (38-126) U/L Total Protein 8.5 H (6.3-8.2) g/dL Albumin 4.7 (3.5-5.0) g/dL Globulin 3.8 (1.7-4.1) g/dL Albumin/Globulin Ratio 1.2 (1.0-2.8) Lipase 81 (23-300) U/L Urine RBC 0-1/hpf (0-5/HPF) Urine WBC 30-100/hpf H (0-5/HPF) Ur Squamous Epith Cells 0-1 /hpf (0-5/HPF) Amorphous Sediment 1+ Urine Bacteria Few (2-10) H (None) Urine Mucus 1+ H (Negative) Ur Culture Indicated? Specimen cultured Point of care testing: Urine Dip Bedside Urine Glucose Negative Bedside Urine Bilirubin - Negative Bedside Urine Ketone - Negative Urine Specific [place] 1.015 Bedside Urine Occult Blood +/- Bedside Urine pH 6.0 Bedside Urine Protein + 30 Bedside Urine Urobilinogen - Negative Bedside Urine Nitrite - Negative Bedside Urine Leukocytes +++ 500 Esterase <Brandan Agee, - Last Filed: 12/26/19 19:14> Lab Data Labs: Lab Results 12/26/19 12/26/19 12/26/19 Range/Units 17:14 17:55 17:55 WBC 9.1 (4.5-11.0) X10^3/uL RBC 4.21 L (4.5-5.9) X10^6/uL Hgb 14.6 (13.5-17.5) g/dL Hct 40.7 L (41-53) % MCV 96.7 (80-100) fL MCH 34.6 H (26-34) PG MCHC 35.8 (30-36) % RDW 13.1 (11.6-14.8) % Plt Count 225 (150-400) X10^3/uL Neut % (Auto) 71.7 (50-75) % Lymph % (Auto) 14.7 L (25-40) % Sunflower % (Auto) 8.8 (3-14) % Eos % (Auto) 3.7 (2-4) % Baso % (Auto) 1.1 (0-2) % Neut # (Auto) 6500 (1685-9518) /uL Lymph # (Auto) 1300 (9420-4407) /uL Sunflower # (Auto) 800 (0-900) /uL Eos # (Auto) 300 (0-450) /uL Baso # (Auto) 100 (0-100) /uL Sodium 139 (137-145) mmol/L Potassium 4.9 (3.4-5.1) mmol/L Chloride 104 (98-107) mmol/L Carbon Dioxide 22 (22-32) mmol/L BUN 40 H (9-20) mg/dL Creatinine 2.38 H (0.66-1.25) mg/dL Estimated GFR 28.1 L (>60) mL/min BUN/Creatinine Ratio 16.8 (6-22) Glucose 89 (70-100) mg/dL Calcium 9.5 (8.4-10.2) mg/dL Total Bilirubin 1.0 (0.2-1.3) mg/dL AST 31 (17-59) IU/L ALT 43 (<50) IU/L Alkaline Phosphatase 75 (38-126) U/L Total Protein 8.5 H (6.3-8.2) g/dL Albumin 4.7 (3.5-5.0) g/dL Globulin 3.8 (1.7-4.1) g/dL Albumin/Globulin Ratio 1.2 (1.0-2.8) Lipase 81 (23-300) U/L Urine RBC 0-1/hpf (0-5/HPF) Urine WBC 30-100/hpf H (0-5/HPF) Ur Squamous Epith Cells 0-1 /hpf (0-5/HPF) Amorphous Sediment 1+ Urine Bacteria Few (2-10) H (None) Urine Mucus 1+ H (Negative) Ur Culture Indicated? Specimen cultured Point of care testing: Urine Dip Bedside Urine Glucose Negative Bedside Urine Bilirubin - Negative Bedside Urine Ketone - Negative Urine Specific [place] 1.015 Bedside Urine Occult Blood +/- Bedside Urine pH 6.0 Bedside Urine Protein + 30 Bedside Urine Urobilinogen - Negative Bedside Urine Nitrite - Negative Bedside Urine Leukocytes +++ [address] scan - abdomen/pelvis: Radiologist's Impression: [address] [address] [address] Scan Report Signed Patient: Duc Lindo [facility]#: [id number] : 1960Acct:[id number] Age/Sex: 59 / MDate of Service: 12/26/19 Loc: ED Accession Number: [id number] Procedure: CT abdomen pelvis wo con Ordering Provider: Mauro Hernandez MD PROCEDURE: CT ABDOMEN PELVIS WO CON INDICATIONS: lt lower abd pain TECHNIQUE: Noncontrast 5 mm thick sections acquired from the diaphragms to the symphysis. 5 mm coronal and sagittal reformats were then performed. For radiation dose reduction, the following was used: automated exposure control, adjustment of mA and/or kV according to patient size. COMPARISON: [facility], CT, CT ABDOMEN PELVIS WO CON, 12/24/2019, 21:01. [facility], CT, KIDNEY/ URETER/BLADDER, 07/07/2016, 15:07. [facility], CT, ABD/PELVIS W/O CON (PNL), 03/19/2013, 12:39. FINDINGS: Image quality: Diagnostic. ABDOMEN: Lung bases: Lung bases are clear. Heart size is normal. Solid organs: Severe left-sided hydronephrosis with associated parenchymal thinning is identified, which is similar to the previous examination. Associated severe hydroureter on the left is identified that extends to the level of the vesicoureteral junction. 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 There is moderate right-sided hydronephrosis with corresponding hydroureter. There may be parapelvic cysts present bilaterally. The overall appearance of the kidneys is similar to the prior study. Punctate bilateral renal calculi are present. No ureteral calculi are identified. The liver and spleen are unchanged. The adrenals and pancreas are within normal limits. Peritoneum and bowel: There may be a very small hiatal hernia. The stomach is otherwise unremarkable. The small bowel loops are nondilated. The appendix is well- visualized and normal. Extensive colonic diverticulosis is identified. There is moderate thickening of the wall of the descending colon with prominent surrounding inflammation. A small amount of fluid appears to be present within the left paracolic gutter. The degree of inflammation is grossly similar to the previous exam. There is no loculated fluid collection or free air. There may be a very small fat containing periumbilical hernia. Nodes and vessels: No retroperitoneal or mesenteric adenopathy by size criteria. Aorta and inferior vena cava are normal in caliber. There is aortic and iliac artery atherosclerosis. Bones: No acute fracture or suspicious osseous lesion is identified. Degenerative changes of the L-spine are similar to the prior study. PELVIS: Genitourinary: Irregularity of the wall of the urinary bladder is identified with patchy areas of mild wall thickening. The prostate gland is not rectally apparent. There is prominent dilatation of the seminal vesicles. Miscellaneous: Small bilateral fat-containing inguinal hernias appear to be present. No lymphadenopathy is appreciated. No free fluid or loculated fluid collection is appreciated. Bones: No suspicious bony lesions. No acute pelvic fractures are present. IMPRESSION: 1. Descending colonic diverticulitis is similar to the previous exam. There is no bowel obstruction or abscess. A minimal amount of reactive free fluid is identified within the adjacent left paracolic gutter. A dedicated colonoscopy is recommended when the patient's acute symptoms have resolved to exclude an underlying lesion. 2. Moderate to severe hydronephrosis is similar to the previous examination (left greater than right). 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 3. Lobular appearance of the urinary bladder with patchy areas of wall thickening probably is related to either neurogenic bladder or chronic bladder outlet obstruction. 4. Nonobstructing bilateral renal calculi. 5. Normal appendix. Dictated by: Deshaun Laureano M.D. on 12/26/2019 at 17:15 Approved by: Deshaun Laureano M.D. on 12/26/2019 at 17:21 [facility] Narrative Medical decision making narrative: Received turned over from Dr Hernandez: Review patient's history and physical. Reviewed patient's labs. His elevation in his creatinine a decrease in his GFR is not new for him. He is seeing a dispatcher motor vehicle. He is given a copy of his labs to take to his dispatcher motor vehicle. CT scan today shows diverticulitis without signs of perforation or abscess or obstructions. He is currently on Augmentin. We discussed potentially switching him to Cipro and Flagyl which she has had in the past however we did discuss that only being on Augmentin for 2 days it is difficult to know whether not his symptoms today were a lack of response to this medication or potentially which is not on the medication for another time. He expressed understanding of this and after this discussion we opted to keep him on the Augmentin. Had a long discussion regarding his CT scan today. We will hold on further workup. Patient is okay with going home. Discussed return precautions and follow-up instructions. He expressed understanding and agreement. Discharge Plan Departure Patient Disposition: Home Clinical Impression: Diverticulitis Instructions: DI for Diverticulitis Activity Restrictions/Additional Instructions: Continue with the antibiotics as previously prescribed. Contact your primary provider for follow-up. Return to the emergency department for any new or worsening symptoms Prescriptions: New tramadol [Ultram] 50 mg tablet 50 mg PO Q6H PRN (Reason: pain) Qty: 10 RF: 0 No Action hydrocodone-acetaminophen 5 MG/325 MG tablet 0 tab PO Q6HP PRNQty: 15 RF: 0 ciprofloxacin HCl [Cipro] 500 MG tablet 500 mg PO BID Qty: 20 RF: 0 ketorolac 10 MG tablet 10 mg PO Q6HP PRNQty: 20 RF: 0 ondansetron [Zofran ODT] 4 MG tablet,disintegrating 4 mg Sublingual Q6HP PRNQty: 20 RF: 0 levofloxacin [Levaquin] 750 MG tablet 750 mg PO QDAY 5 Days Qty: 0 RF: 0 amoxicillin-pot clavulanate [Augmentin] 875-125 mg tablet 1 tab PO BID 10 Days Qty: 20 RF: 0 Referrals: Aaron Cardenas [Primary Care Provider] -
[2019-12-26 18:08] LABS: Add Manual Diff / Slide Review NO; Basophils Absolute Auto 100 /uL (0-100); Basophils Percent Auto 1.1 % (0-2); Eosinophils Absolute Auto 300 /uL (0-450); Eosinophils Percent Auto 3.7 % (2-4); Hematocrit 40.7 % (41-53); Hemoglobin 14.6 g/dL (13.5-17.5); Lymphocytes Absolute Auto 1300 /uL (1100-4500); Lymphocytes Percent Auto 14.7 % (25-40); Mean Corpuscular HGB Conc 35.8 % (30-36); Mean Corpuscular Hemoglobin 34.6 PG (26-34); Mean Corpuscular Volume 96.7 fL (80-100); Monocytes Absolute Auto 800 /uL (0-900); Monocytes Percent Auto 8.8 % (3-14); Neutrophils Absolute Auto 6500 /uL (1500-7000); Neutrophils Percent Auto 71.7 % (50-75); Platelet Count 225 X10^3/uL (150-400); Red Blood Cell Count 4.21 X10^6/uL (4.5-5.9); Red Cell Distribution Width 13.1 % (11.6-14.8); White Blood Cell Count 9.1 X10^3/uL (4.5-11.0)
[2019-12-26 18:19] LABS: Alanine Aminotransferase 43 IU/L (<50); Albumin 4.7 g/dL (3.5-5.0); Albumin Globulin Ratio 1.2 (1.0-2.8); Alkaline Phosphatase 75 U/L (38-126); Aspartate Aminotransferase 31 IU/L (17-59); BUN Creatinine Ratio 16.8 (6-22); Blood Urea Nitrogen 40 mg/dL (9-20); Calcium 9.5 mg/dL (8.4-10.2); Carbon Dioxide 22 mmol/L (22-32); Chloride 104 mmol/L (98-107); Estimated Glomerular Filt Rate 28.1 mL/min (>60); Globulin 3.8 g/dL (1.7-4.1); Glucose 89 mg/dL (70-100); HEMOLYSIS 22 (0-50); Lipase 81 U/L (23-300); Potassium 4.9 mmol/L (3.4-5.1); Sodium 139 mmol/L (137-145); Total Protein 8.5 g/dL (6.3-8.2)
[2019-12-26 18:22] VITALS: BP 171/89; PULSE 65; RESP 18; O2SAT 98
== END 2019-12-26 19:05 | disposition home or self-care (01) ==
PROVIDERS: Emergency Medicine; Emergency Provider Emergency Medicine; Family Provider Family Medicine
DX: K57.92 Diverticulitis of intestine, part unspecified, without perforation or abscess without bleeding (principal)
CPT/HCPCS: 36415; 74176; 80053; 81003; 81015; 83690; 85025; 87086; 99284

== ENCOUNTER 2024-02-22 02:41 | Observation (INO) | payer OTHER, SELFPAY ==
[2024-02-22] VITALS (20 sets, daily range): BP systolic 95–166; BP diastolic 58–95; PULSE 78–116; RESP 16–22; TEMP 36.2–37.2; O2SAT 90–98; BMI 26.7
--- NOTE | 2024-02-22 03:08 | EKG_ITS ---
[address] [address] Test Date: 2024-02-22 Pat Name: Duc Lindo Department: [facility] Room: Gender: Male [employer] Specialty: ANTONIO : 1960 Requested By: Order Number: [id number] Reading MD: Kunal Winter Measurements Intervals [place] Rate: 112 P: 55 MO: 164 QRS: 41 QRSD: 76 T: 65 QT: 332 QTc: 453 Interpretive Statements Sinus tachycardia Possible Anterior infarct , age undetermined Electronically Signed On 02-23-2024 9:45:40 PDT by Kunal Winter
[2024-02-22 04:11] LABS: Add Manual Diff / Slide Review NO; Basophils Absolute Auto 100 /uL (0-100); Basophils Percent Auto 0.5 % (0-2); Eosinophils Absolute Auto 300 /uL (0-450); Hemoglobin 14.2 g/dL (13.5-17.5); Lymphocytes Absolute Auto 900 /uL (1100-4500); Lymphocytes Percent Auto 5.9 % (25-40); Mean Corpuscular HGB Conc 33.8 % (30-36); Mean Corpuscular Hemoglobin 33.3 PG (26-34); Mean Corpuscular Volume 98.5 fL (80-100); Monocytes Absolute Auto 1400 /uL (0-900); Monocytes Percent Auto 9.1 % (3-14); Neutrophils Absolute Auto 12400 /uL (1500-7000); Neutrophils Percent Auto 82.5 % (50-75); Platelet Count 207 X10^3/uL (150-400); Red Blood Cell Count 4.27 X10^6/uL (4.5-5.9); Red Cell Distribution Width 13.8 % (11.6-14.8)
--- NOTE | 2024-02-22 04:23 | ED.ABDPAIN ---
HPI - Abdominal Pain General Chief Complaint: Abdominal Pain Stated Complaint: chills, severe back pain Time Seen by Provider: 02/22/24 04:00 Source: patient Mode of arrival: Ambulatory History of Present Illness HPI narrative: 63-year-old male with history of sarcoidosis, frequent cough, prior kidney stones, prior diverticulitis, known renal insufficiency, complains of left flank pain onset 9:00 p.m. last night, no trauma injury or new activities, some radiation of the pain anteriorly left lower quadrant this morning. He also thinks he has had kidney stones before, but this feels different. He believes his creatinine is in the 2-2.5 range, has not been on dialysis. He has frequent coughing, wheezing, uses frequent SVN at home, including earlier this evening. No fevers or chills. No nausea or vomiting. No diarrhea. No black or red stools. Related Data Home Medications Medication Instructions Recorded Confirmed folic acid 1 mg tablet 1 mg PO DAILY 02/22/24 02/22/24 omeprazole 40 mg capsule,delayed 40 mg PO DAILY 02/22/24 02/22/24 release tiotropium bromide 18 mcg capsule 18 mcg inhalation PRN PRN sob 02/22/24 02/22/24 with inhalation device (Spiriva with HandiHaler) valsartan 160 mg tablet 160 mg PO DAILY 02/22/24 02/22/24 Allergies Allergy/AdvReac Type Severity Reaction Status Date / Time lisinopril [LISINOPRIL] Allergy Unknown COUGH Verified 12/26/19 16:34 Sulfa (Sulfonamide Allergy Unknown RASH Verified 12/26/19 16:34 Antibiotics) [SULFA (SULFONAMIDE ANTIBIOTICS)] NSAIDS (Non-Steroidal Allergy Verified 12/26/19 16:34 Anti-Inflamma Review of Systems Review of Systems Narrative: per HPI Patient History Medical History No significant medical problems Social History household members: spouse Smoking Status: Never smoker Smoking Status: Never smoker alcohol intake frequency: a few times a week Substance Use Type: does not use Exam Narrative Exam Narrative: GENERAL: Well-developed patient, in mild distress. HEAD: Atraumatic. Normocephalic. EYES: Pupils equal round and reactive. Extraocular motions intact. No scleral icterus. No injection or drainage. ENT: Nose without bleeding, purulent drainage. Throat without erythema, tonsillar hypertrophy or exudate. Airway patent. NECK: Trachea midline. Non tender CARDIOVASCULAR: Regular rate and rhythm without murmurs, gallops, or rubs. RESPIRATORY: Wheeze bilateral lung zapien, no retractions, no rhonchi, speaks in full sentences. GASTROINTESTINAL: Abdomen soft, non-tender, nondistended. EXTREMITIES: No edema or joint tenderness. BACK: Nontender without deformity or crepitance. No flank tenderness. NEURO: AOx3. Nonfocal neuro exam. SKIN: No rash or erythema of visible areas Initial Vital Signs Initial Vital Signs: Vital Signs Pulse Rate 116 H 02/22/24 02:50 Pulse Oximetry 94 02/22/24 02:50 Course Orders Ordered: ED Orders 02/22/24 07:55 Urinalysis and Microscopic Stat Urine Culture Stat 02/22/24 08:10 Blood Culture Stat Acetaminophen (Acetaminophen 325 Mg Tablet) 650 mg PO Q6H PRN PRN Reason: Fever/Mild Pain (1-3) Hydrocodone Bitart/Acetaminophen (Hydrocodone/Acet 5/325 Tablet) 1 tab PO Q4H PRN PRN Reason: Pain, Moderate (4-6) Last Admin: 02/22/24 09:52 Dose: 1 tab Documented By: Albuterol (Albuterol 2.5 Mg/3 Ml Neb (Adult)) 2.5 mg INH [id number] PRN PRN Reason: Shortness Of Breath Albuterol/Ipratropium (Albuterol/Ipratropium 3 Ml Ampul) 3 ml INH [id number] [facility] Last Admin: 02/22/24 14:45 Dose: 3 ml Documented By: Admin: 02/22/24 08:38 Dose: 3 ml Documented By: JEFF Hydromorphone HCl (Hydromorphone 0.5 Mg Inj) 0.5 mg IV Q2H PRN PRN Reason: Pain, Moderate (4-6) Sodium Chloride (Normal Saline 0.45%) 1,000 mls @ 100 mls/hr IV CONT NBA Last Admin: 02/22/24 09:54 Dose: 100 mls/hr Documented By: Ceftriaxone Sodium 1,000 mg/ (Sodium Chloride) 100 mls @ 200 mls/hr IV Q24H NBA Naloxone HCl (Naloxone 0.4 Mg/Ml Vial) 0.2 mg IV Q2MIN PRN PRN Reason: Opiate Reversal Ondansetron HCl (Ondansetron 4 Mg/2 Ml Inj) 4 mg IV NOW PRN PRN Reason: Nausea And Vomiting Ondansetron HCl (Ondansetron 4 Mg Odt) 4 mg PO NOW PRN PRN Reason: Nausea And Vomiting Ondansetron HCl (Ondansetron 4 Mg/2 Ml Inj) 4 mg IV Q8HR PRN PRN Reason: Nausea And Vomiting Sodium Chloride (Sodium Chloride 0.9% Flush) 10 ml IV PRN PRN PRN Reason: Flush Discontinued Medications Albuterol/Ipratropium (Albuterol/Ipratropium 3 Ml Ampul) 3 ml INH NOW ONE Stop: 02/22/24 04:30 Last Admin: 02/22/24 04:41 Dose: 3 ml Documented By: Azithromycin (Azithromycin 250 Mg Tablet) 500 mg PO NOW ONE Stop: 02/22/24 07:15 Last Admin: 02/22/24 07:35 Dose: 500 mg Documented By: CRAIG Hydromorphone HCl (Hydromorphone 0.5 Mg Inj) 0.5 mg IV NOW ONE Stop: 02/22/24 04:29 Last Admin: 02/22/24 04:52 Dose: 0.5 mg Documented By: JOSE ARMANDO Sodium Chloride (Normal Saline 0.9%) 1,000 mls @ 1,000 mls/hr IV BOLUS ONE Stop: 02/22/24 06:30 Last Infusion: 02/22/24 07:45 Dose: Infused Documented By: Admin: 02/22/24 06:30 Dose: 1,000 mls/hr Documented By: JOSE ARMANDO Ceftriaxone Sodium 1,000 mg/ (Sodium Chloride) 100 mls @ 200 mls/hr IV NOW ONE Stop: 02/22/24 07:15 Last Infusion: 02/22/24 08:57 Dose: Infused Documented By: Admin: 02/22/24 08:02 Dose: 200 mls/hr Documented By: CRAIG Methylprednisolone (Methylprednisolone 125 Mg/2 Ml Vial) 125 mg IV NOW ONE Stop: 02/22/24 04:30 Last Admin: 02/22/24 04:53 Dose: 125 mg Documented By: JOSE ARMANDO Ondansetron HCl (Ondansetron 4 Mg/2 Ml Inj) 4 mg IV NOW ONE Stop: 02/22/24 04:29 Last Admin: 02/22/24 04:53 Dose: 4 mg Documented By: JOSE ARMANDO Vital Signs Vital signs: Vital Signs - 8 hr 02/22/24 02:50 02/22/24 02:54 02/22/24 03:00 Temperature 98.3 F Pulse Rate 116 H 114 H Respiratory Rate 22 Blood Pressure 133/77 124/69 Pulse Oximetry 94 93 Oxygen Delivery Method Room Air Oxygen Flow Rate 02/22/24 03:00 02/22/24 03:30 02/22/24 03:30 Temperature Pulse Rate 114 H 109 H Respiratory Rate Blood Pressure 107/58 L Pulse Oximetry 93 94 Oxygen Delivery Method Oxygen Flow Rate 02/22/24 04:00 02/22/24 04:00 02/22/24 04:30 Temperature Pulse Rate 114 H 103 H Respiratory Rate Blood Pressure 116/74 Pulse Oximetry 94 93 Oxygen Delivery Method Oxygen Flow Rate 02/22/24 04:30 02/22/24 04:55 02/22/24 05:00 Temperature Pulse Rate 100 H Respiratory Rate 18 Blood Pressure 125/77 125/77 95/68 Pulse Oximetry 93 Oxygen Delivery Method Room Air Oxygen Flow Rate 02/22/24 05:00 02/22/24 05:30 02/22/24 05:30 Temperature Pulse Rate 99 H 95 H Respiratory Rate Blood Pressure 102/65 Pulse Oximetry 90 L 91 Oxygen Delivery Method Room Air Nasal Cannula Oxygen Flow Rate 2 02/22/24 06:00 02/22/24 06:01 02/22/24 06:01 Temperature Pulse Rate 96 H 97 H Respiratory Rate Blood Pressure 108/74 Pulse Oximetry 94 94 Oxygen Delivery Method Nasal Cannula Oxygen Flow Rate 2 02/22/24 06:30 02/22/24 06:30 Temperature Pulse Rate 86 Respiratory Rate Blood Pressure 122/69 Pulse Oximetry 95 Oxygen Delivery Method Oxygen Flow Rate MDM - Abdominal Pain Differential Diagnosis Differential diagnosis: Likely abdominal pain, acute appendicitis, calculus of kidney, constipation, diverticulitis, gastroenteritis, pancreatitis, small bowel obstruction and other Lab Data Attestation: I reviewed the patient's lab results. 02/22/24 04:00 02/22/24 04:00 Labs: Lab Results 02/22/24 02/22/24 02/22/24 Range/Units 04:00 06:18 07:55 WBC 15.0 H (4.5-11.0) X10^3/uL RBC 4.27 L (4.5-5.9) X10^6/uL Hgb 14.2 (13.5-17.5) g/dL Hct 42.0 (41-53) % MCV 98.5 (80-100) fL MCH 33.3 (26-34) PG MCHC 33.8 (30-36) % RDW 13.8 (11.6-14.8) % Plt Count 207 (150-400) X10^3/uL Neut % (Auto) 82.5 H (50-75) % Lymph % (Auto) 5.9 L (25-40) % [place] % (Auto) 9.1 (3-14) % Eos % (Auto) 2.0 (2-4) % Baso % (Auto) 0.5 (0-2) % Neut # (Auto) 51351 H (1218-7521) /uL Lymph # (Auto) 900 L (2839-0569) /uL [place] # (Auto) 1400 H (0-900) /uL Eos # (Auto) 300 (0-450) /uL Baso # (Auto) 100 (0-100) /uL Sodium 137 (137-145) mmol/L Potassium 4.9 (3.4-5.1) mmol/L Chloride 110 H (98-107) mmol/L Carbon Dioxide 17 L (22-32) mmol/L BUN 24 H (9-20) mg/dL Creatinine 3.19 H (0.66-1.25) mg/dL Estimated GFR 21 L (>60) mL/min BUN/Creatinine Ratio 7.5 (6-22) Glucose 273 H (80-110) mg/dL Calcium 8.5 (8.4-10.2) mg/dL Total Bilirubin 0.7 (0.2-1.3) mg/dL AST 21 (17-59) IU/L ALT 17 (<50) IU/L Alkaline Phosphatase 67 (38-126) U/L Total Protein 7.5 (6.3-8.2) g/dL Albumin 4.4 (3.5-5.0) g/dL Globulin 3.1 (1.7-4.1) g/dL Albumin/Globulin Ratio 1.4 (1.0-2.8) Lipase 94 (23-300) U/L Urine Color Yellow Urine Appearance Cloudy Urine pH 6.0 (4.5-8.0) Ur Specific [place] 1.020 (1.000-1.035) Urine Protein 3+ H (Negative) Urine Glucose (UA) Negative (Negative) g/dL Urine Ketones Trace H (NEGATIVE) Urine Occult Blood 3+ H (Negative) Urine Nitrate Positive H (Negative) Urine Bilirubin Negative (NEGATIVE) Urine Urobilinogen 1.0 (0.2) E.U./dL Ur Leukocyte Esterase 2+ H (NEGATIVE) Urine RBC 30-100/hpf H (0-5/HPF) Urine WBC >100/hpf H (0-5/HPF) Ur Squamous Epith Cells None seen (0-5/HPF) Urine Bacteria Moderate (10-30) H (None) Ur Culture Indicated? Specimen cultured Vol Urine Centrifuged 10ml (spun) SARS-CoV-2 (PCR) Negative (Negative) Influenza A (RT-PCR) Flu a negative (NEGATIVE) Influenza B (RT-PCR) Flu b negative (NEGATIVE) RSV (PCR) Negative (Negative) Point of care testing: Urine Dip Bedside Urine Glucose Negative Bedside Urine Bilirubin - Negative Bedside Urine Ketone - Negative Urine Specific [place] 1.020 Bedside Urine Occult Blood +++ Bedside Urine pH 6 Bedside Urine Protein +++ 300 Bedside Urine Urobilinogen - Negative Bedside Urine Nitrite - Negative Bedside Urine Leukocytes +++ 500 Esterase ECG Data Attestation: I personally reviewed and interpreted this ECG as follows: Interpretation: Sinus tachycardia with rate 112, no obvious ST segment elevation or depression changes. SC 164, QRS 76, QTC 453. MDM Narrative Medical decision making narrative: 63-year-old male with history of sarcoidosis, with cough and wheezing, prior diverticulitis, prior kidney stones, with left flank pain onset last night, radiating to the left lower quadrant. DDX consider left ureteral stone, UTI/pyelonephritis, diverticulitis, colitis, lower lobe pneumonia, other. Regarding wheezing, we will give IV Solu-Medrol and SVN DuoNeb. Chest x-ray pending. COVID/influenza pending. History of renal insufficiency. We will proceed with CT abdomen and pelvis noncontrast imaging now. He is in discomfort, would like pain medication. Avoid Toradol given renal insufficiency. IV Dilaudid/Zofran. Keep NPO for now. CXR without obvious infiltrates CT abdomen and pelvis without contrast. Impression: ?Early infiltrate within the right middle lobe. Follow up on chest x-ray after appropriate treatment to document resolution. ? See tele radiology report Blood culture sent, will start antibiotics for community acquired pneumonia, IV ceftriaxone, p.o. azithromycin. Creatinine increased over baseline, likely acute on chronic KATHERINE, consider admission. Patient/family agreeable. Will contact hospitalist [id number], case discussed with hospitalist Dr. Forte who accepts patient for admission Critical Care Time Critical Care Time Critical Care Time: Yes Total Critical Care Time: 35 Attestation: The high probability of a clinically significant, sudden or life threatening deterioration of the [cardiopulmonary, abdominal pelvic, genitourinary, renal] system(s) required my full and direct attention, intervention and personal management. The aggregate critical care time was [35] minutes. This time is in addition to time spent performing reported procedures but includes the following: [x] Data Review and interpretation [x] Patient assessment and monitoring of vital signs [x] Documentation [x] Medication orders and management Discharge Plan Departure Patient Disposition: Admitted as Observation Clinical Impression: Left flank pain, Wheezing, History of renal insufficiency, History of sarcoidosis, Pneumonia, Renal failure, acute on chronic Admit Date/Time: 02/22/24 08:05 Admit Provider: Kunal Winter
--- NOTE | 2024-02-22 04:27 | DI.CT.S_ITS ---
PROCEDURE: CT ABDOMEN PELVIS WO CON INDICATIONS: Left flank and left lower quadrant abd pain, renal insuff TECHNIQUE: Axial sections were acquired from the lung bases to the pubic symphysis. Coronal and sagittal reformats were performed. For radiation dose reduction, the following was used: automated exposure control, adjustment of mA and/or kV according to patient size. COMPARISON: [facility], CT, CT ABDOMEN PELVIS WO CON, 12/26/2019, 17:54. FINDINGS: Image quality: Diagnostic Lower chest: Right costophrenic angle calcified plaque. Mild peripheral reticulation. No drainable effusions. Mildly patulous distal esophagus. Small amount of pericardial fluid again seen Liver: Solid organs not well evaluated without IV contrast. No contour deforming mass Gallbladder and biliary system: Unremarkable, nondilated Pancreas: No ductal dilation Spleen: Nonenlarged Adrenals: No discrete nodules Kidneys: Mild right urothelial thickening without significant collecting system dilation. Severe left hydronephrosis and periureteral fat stranding, slightly increased from 2020. Chronically dilated calices and bilateral cortical thinning. Note that the left collecting system is probably partially duplicated Possible narrowing at the left distal ureter. Vessels and lymph nodes: No abdominal aortic aneurysm. No pathologic lymph nodes by size criteria. There are atherosclerotic calcifications. Bowel and peritoneum: [id number] gastric distention. No evidence of small bowel obstruction. There are colonic diverticula. No pathologic ascites or drainable abscess Body wall: Small fat containing umbilical hernia Pelvis: Mild bladder wall thickening. Perivesicular fat stranding. Prostate is not well evaluated on this study. Small bilateral inguinal hernias. Bones: No acute or suspicious osseous finding. There are degenerative changes. IMPRESSION: Partially duplicated left collecting system. Severe left collecting system dilation and ureter inflammatory changes. Mild urothelial thickening is also seen on the right. Bilateral chronic calyceal dilation and renal cortical thinning. Possible narrowing at the left distal ureter. Mild bladder wall thickening and inflammatory/edematous perivesicular fat stranding. Correlate urinalysis or superimposed infection. Further evaluation could be obtained with CT IVP and urologic follow-up for cystoscopy No significant discrepancy from prelim report. Other findings as above. Dictated by: Montez Chavez M.D. on 02/22/2024 at 8:14 Approved by: Montez Chavez M.D. on 02/22/2024 at 8:20
--- NOTE | 2024-02-22 04:32 | DI.RAD.S_ITS ---
PROCEDURE: XR CHEST 2V INDICATIONS: cough, wheeze, hx Sarcoidosis TECHNIQUE: 2 views of the chest were acquired. COMPARISON: [facility], ROSA, XR CHEST 1V, 12/24/2019, 20:48. [facility], CR, CHEST 2 VIEW, 10/23/2017, 18:00. FINDINGS: Surgical changes and devices: Possible shunt catheter Lungs and pleura: Possible right infrahilar opacity. No drainable effusion. Mediastinum: Heart size is normal and unchanged Bones and chest wall: Degenerative findings. IMPRESSION: Possible right infrahilar opacity representing airspace disease or atelectasis. Agree with prelim report. Consider future imaging surveillance to assess for resolution. Dictated by: Montez Chavez M.D. on 02/22/2024 at 7:53 Approved by: Montez Chavez M.D. on 02/22/2024 at 7:54
[2024-02-22 04:34] LABS: Alanine Aminotransferase 17 IU/L (<50); Albumin 4.4 g/dL (3.5-5.0); Albumin Globulin Ratio 1.4 (1.0-2.8); Alkaline Phosphatase 67 U/L (38-126); Aspartate Aminotransferase 21 IU/L (17-59); BUN Creatinine Ratio 7.5 (6-22); Bilirubin Total 0.7 mg/dL (0.2-1.3); Blood Urea Nitrogen 24 mg/dL (9-20); Calcium 8.5 mg/dL (8.4-10.2); Carbon Dioxide 17 mmol/L (22-32); Chloride 110 mmol/L (98-107); Estimated Glomerular Filt Rate 21 mL/min (>60); Globulin 3.1 g/dL (1.7-4.1); Glucose 273 mg/dL (80-110); HEMOLYSIS < 15 (0-50); Lipase 94 U/L (23-300); Potassium 4.9 mmol/L (3.4-5.1); Sodium 137 mmol/L (137-145); Total Protein 7.5 g/dL (6.3-8.2)
[2024-02-22] MEDS: ALBUTEROL/IPRATROPIUM 3 ML AMPUL INH ×4 (04:41→18:09)
[2024-02-22] MEDS: HYDROMORPHONE 0.5 MG INJ IV (04:52)
[2024-02-22] MEDS: methylPREDNISolone 125 MG/2 ML VIAL IV (04:53)
[2024-02-22] MEDS: ONDANSETRON 4 MG/2 ML INJ IV (04:53)
[2024-02-22] MEDS: SODIUM CHLORIDE 0.9% 1,000 ML 1000 ML IV (06:30)
[2024-02-22 07:05] LABS: COVID-19 CEPHEID 4-PLEX PCR Negative (Negative); Influenza A - CEPHEID Flu A NEGATIVE (NEGATIVE); Influenza B - CEPHEID Flu B NEGATIVE (NEGATIVE); Respiratory Syncytial Virus Negative (Negative)
[2024-02-22] MEDS: AZITHROMYCIN 250 MG TABLET 500 MG PO (07:35)
[2024-02-22] MEDS: cefTRIAXone 1,000 MG in SODIUM CHLORIDE 0.9% 100 ML 200 MG IV (08:02)
[2024-02-22 08:04] LABS: Appearance Urine UA CLOUDY; Bilirubin Urine UA NEGATIVE (NEGATIVE); Color Urine UA YELLOW; Glucose Urine UA NEGATIVE (Negative); Ketones Urine UA TRACE (NEGATIVE); Leukocyte Esterase Urine UA 2+ (NEGATIVE); Nitrite Urine UA POSITIVE (Negative); Occult Blood Urine UA 3+ (Negative); Protein Urine UA 3+ (Negative)
--- NOTE | 2024-02-22 08:04 | PM.HP.1 ---
History of Present Illness History of Present Illness Date Patient Seen: 02/22/24 Time Patient Seen: 10:12 Chief complaint: chills, severe back pain Narrative: From ED doctor: 63-year-old male with history of sarcoidosis, frequent cough, prior kidney stones, prior diverticulitis, renal insufficiency complains of left flank pain onset 9:00 p.m. last night, no trauma injury or new activities, some radiation of the pain anteriorly left lower quadrant this morning. He also thinks he has had kidney stones before, but this feels different. He believes his creatinine is in the 2-2.5 range, has not been on dialysis. He has frequent coughing, wheezing, uses frequent SVN at home, including earlier this evening. No fevers or chills. No nausea or vomiting. No diarrhea. No black or red stools. S: The patient notes he had some bladder discomfort yesterday evening and then developed overt left-sided flank pain which was primarily in the back but radiate to the front at about 2:00 a.m.. He also had a fever yesterday evening. He states this feels like an infection more than a kidney stone. He states his left kidney is non functioning per his urologist in [place]. 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 The patient has had stones before, this feels different. Imaging did reveal severe left-sided hydroureter which he attests is chronic. The patient is feeling better with antibiotics. He has had infections before which have all been bacterial without any mentioned of MDR. He did have 1 fungal infection about 7 years ago requiring caspofungin for 2 weeks. He denies any nausea. No chest pain, or shortness a breath. [facility] Medical History No significant medical problems Social History household members: spouse Smoking Status: Never smoker Meds Home Medications and Allergies Home Medications Medication Instructions Recorded Confirmed Type folic acid 1 mg tablet 1 mg PO DAILY 02/22/24 02/22/24 History omeprazole 40 mg capsule,delayed 40 mg PO DAILY 02/22/24 02/22/24 History release tiotropium bromide 18 mcg capsule 18 mcg inhalation PRN PRN sob 02/22/24 02/22/24 History with inhalation device (Spiriva with HandiHaler) valsartan 160 mg tablet 160 mg PO DAILY 02/22/24 02/22/24 History Allergies Allergy/AdvReac Type Severity Reaction Status Date / Time lisinopril [LISINOPRIL] Allergy Unknown COUGH Verified 12/26/19 16:34 Sulfa (Sulfonamide Allergy Unknown RASH Verified 12/26/19 16:34 Antibiotics) [SULFA (SULFONAMIDE ANTIBIOTICS)] NSAIDS (Non-Steroidal Allergy Verified 12/26/19 16:34 Anti-Inflamma Review of Systems Review of Systems Narrative: All else reviewed and otherwise unremarkable except as noted in the history and physical. Exam Vital Signs (past 8 hours): - 02/22/24 02:50 02/22/24 02:54 02/22/24 03:00 Temperature 98.3 F Pulse Rate 116 H 114 H Respiratory Rate 22 Blood Pressure 133/77 124/69 Pulse Oximetry 94 93 Oxygen Delivery Method Room Air Oxygen Flow Rate 02/22/24 03:00 02/22/24 03:30 02/22/24 03:30 Temperature Pulse Rate 114 H 109 H Respiratory Rate Blood Pressure 107/58 L Pulse Oximetry 93 94 Oxygen Delivery Method Oxygen Flow Rate 02/22/24 04:00 02/22/24 04:00 02/22/24 04:30 Temperature Pulse Rate 114 H 103 H Respiratory Rate Blood Pressure 116/74 Pulse Oximetry 94 93 Oxygen Delivery Method Oxygen Flow Rate 02/22/24 04:30 02/22/24 04:55 02/22/24 05:00 Temperature Pulse Rate 100 H Respiratory Rate 18 Blood Pressure 125/77 125/77 95/68 Pulse Oximetry 93 Oxygen Delivery Method Room Air Oxygen Flow Rate 02/22/24 05:00 02/22/24 05:30 02/22/24 05:30 Temperature Pulse Rate 99 H 95 H Respiratory Rate Blood Pressure 102/65 Pulse Oximetry 90 L 91 Oxygen Delivery Method Room Air Nasal Cannula Oxygen Flow Rate 2 02/22/24 06:00 02/22/24 06:01 02/22/24 06:01 Temperature Pulse Rate 96 H 97 H Respiratory Rate Blood Pressure 108/74 Pulse Oximetry 94 94 Oxygen Delivery Method Nasal Cannula Oxygen Flow Rate 2 02/22/24 06:30 02/22/24 06:30 Temperature Pulse Rate 86 Respiratory Rate Blood Pressure 122/69 Pulse Oximetry 95 Oxygen Delivery Method Oxygen Flow Rate Oxygen Delivery Method Nasal Cannula Oxygen Flow Rate 2 Narrative Exam Narrative: NAD, alert and oriented, fluent speech, calm. Normocephalic skull, EOMI, anicteric sclera, symmetric pupils. Oropharynx unremarkable, no droop. Neck supple, midline trachea, no adenopathy. Lungs clear, normal rate and effort. Heart regular, no murmur gallop or rub. Abdomen is soft, non distended and non tender. Extremities are free of edema. Skin is free of rash or lesions. Joints are not swollen or deformed. Judgment appears to be normal. Objective ECG Impression: Sinus tachycardia Possible Anterior infarct , age undetermined Imaging Chest x-ray: Radiologist's impression: Possible right infrahilar opacity representing airspace disease or atelectasis. Agree with prelim report. Consider future imaging surveillance to assess for resolution. CT scan - abdomen: Radiologist's impression: Partially duplicated left collecting system. Severe left collecting system dilation and ureter inflammatory changes. Mild urothelial thickening is also seen on the right. Bilateral chronic calyceal dilation and renal cortical thinning. Possible narrowing at the left distal ureter. Mild bladder wall thickening and inflammatory/edematous perivesicular fat stranding. Correlate urinalysis or superimposed infection. Further evaluation could be obtained with CT IVP and urologic follow-up for cystoscopy Labs 02/22/24 04:00 02/22/24 04:00 Labs: Laboratory Results - last 24 hr 02/22/24 02/22/24 04:00 06:18 WBC 15.0 H RBC 4.27 L Hgb 14.2 Hct 42.0 MCV 98.5 MCH 33.3 MCHC 33.8 RDW 13.8 Plt Count 207 Neut % (Auto) 82.5 H Lymph % (Auto) 5.9 L [place] % (Auto) 9.1 Eos % (Auto) 2.0 Baso % (Auto) 0.5 Neut # (Auto) 19730 H Lymph # (Auto) 900 L [place] # (Auto) 1400 H Eos # (Auto) 300 Baso # (Auto) 100 Sodium 137 Potassium 4.9 Chloride 110 H Carbon Dioxide 17 L BUN 24 H Creatinine 3.19 H Estimated GFR 21 L BUN/Creatinine Ratio 7.5 Glucose 273 H Calcium 8.5 Total Bilirubin 0.7 AST 21 ALT 17 Alkaline Phosphatase 67 Total Protein 7.5 Albumin 4.4 Globulin 3.1 Albumin/Globulin Ratio 1.4 Lipase 94 SARS-CoV-2 (PCR) Negative Influenza A (RT-PCR) Flu a negative Influenza B (RT-PCR) Flu b negative RSV (PCR) Negative Assessment & Plan Assessment & Plan narrative: 1. Left flank pain with probable pyelonephritis, present on admission and active. 2. KATHERINE, present on admission and active. 3. Chronic kidney disease stage 3 to 4, present on admission and active. 4. Chronic left hydroureter and probable left kidney dysfunction, present on admission and active. 5. 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 PLAN: -IV antibiotics, blood and urine cultures pending. -IV fluids and monitor renal function with hope to return to normal baseline renal function. -pain control with IV Dilaudid and oral oxycodone. The patient was full resuscitation. His proxy decision maker is his , who lives in [place]. He was admitted to observation status, with a 1 midnight anticipated need for hospital services. Time Spent With Patient Time with patient: 30 to 49 minutes with 50% spent counseling/coordinating care Quality MIPS - Admit I confirm the patient?s Advance Care Plan is present, Code status is documented, Surrogate decision maker is in patient?s record [If Yes, STOP here]: Yes MIPS - Meds 'Current medications' to include all prescriptions, [id number] products, herbals, cannabis/cannabidiol products, and vitamin/mineral/dietary (nutritional) supplements. I have utilized all available resources to obtain, update, or review the patient?s current medications. [If Yes, STOP here]: Yes
[2024-02-22 08:12] LABS: Bacteria Urine Moderate (10-30); Culture Indicated Urine Specimen Cultured; RBC Urine 30-100/HPF (0-5/HPF); Squamous Epithelial Cell Urine None Seen (0-5/HPF); Urine Volume 10mL (spun); WBC Urine >100/HPF (0-5/HPF)
[2024-02-22] MEDS: HYDROCODONE/ACET 5/325 TABLET 1 TAB PO ×2 (09:52→19:55)
[2024-02-22] MEDS: SODIUM CHLORIDE 0.45% 1,000 ML 100 ML IV (09:54)
[2024-02-22] MEDS: BENZONATATE 100 MG CAPSULE PO (23:20)
[2024-02-22] MEDS: VALSARTAN 80 MG TABLET 160 MG PO (23:32)
[2024-02-23] MEDS: LEVOTHYROXINE 25 MCG TABLET PO (06:03)
[2024-02-23] MEDS: LEVOTHYROXINE 100 MCG TABLET 200 MCG PO (06:03)
[2024-02-23] MEDS: SODIUM CHLORIDE 0.45% 1,000 ML 100 ML IV (06:03)
[2024-02-23] MEDS: ALBUTEROL/IPRATROPIUM 3 ML AMPUL INH ×4 (06:11→20:14)
[2024-02-23 06:25] LABS: Add Manual Diff / Slide Review NO; Basophils Absolute Auto 0 /uL (0-100); Basophils Percent Auto 0.1 % (0-2); Eosinophils Absolute Auto 0 /uL (0-450); Hematocrit 36.7 % (41-53); Hemoglobin 12.6 g/dL (13.5-17.5); Lymphocytes Absolute Auto 900 /uL (1100-4500); Lymphocytes Percent Auto 7.5 % (25-40); Mean Corpuscular HGB Conc 34.2 % (30-36); Mean Corpuscular Hemoglobin 33.3 PG (26-34); Mean Corpuscular Volume 97.4 fL (80-100); Monocytes Absolute Auto 1200 /uL (0-900); Monocytes Percent Auto 9.9 % (3-14); Neutrophils Absolute Auto 9800 /uL (1500-7000); Neutrophils Percent Auto 82.5 % (50-75); Platelet Count 199 X10^3/uL (150-400); Red Blood Cell Count 3.77 X10^6/uL (4.5-5.9); Red Cell Distribution Width 14.1 % (11.6-14.8); White Blood Cell Count 11.9 X10^3/uL (4.5-11.0)
[2024-02-23 06:37] LABS: BUN Creatinine Ratio 11.4 (6-22); Blood Urea Nitrogen 32 mg/dL (9-20); Calcium 8.1 mg/dL (8.4-10.2); Carbon Dioxide 18 mmol/L (22-32); Chloride 108 mmol/L (98-107); Estimated Glomerular Filt Rate 25 mL/min (>60); Glucose 129 mg/dL (80-110); HEMOLYSIS < 15 (0-50); Potassium 5.3 mmol/L (3.4-5.1); Sodium 133 mmol/L (137-145)
[2024-02-23] MEDS: cefTRIAXone 1,000 MG in SODIUM CHLORIDE 0.9% 100 ML 200 MG IV (07:39)
[2024-02-23] MEDS: BENZONATATE 100 MG CAPSULE PO ×2 (07:39→17:21)
[2024-02-23 08:00] VITALS: BP 139/83; PULSE 81; RESP 19; TEMP 36.3; O2SAT 95
[2024-02-23] MEDS: VALSARTAN 80 MG TABLET 160 MG PO (09:48)
[2024-02-23] MEDS: FOLIC ACID 1 MG TABLET PO (09:48)
[2024-02-23 11:12] VITALS: PULSE 88; RESP 16; O2SAT 96
--- NOTE | 2024-02-23 12:22 | PM.PN.1 ---
Subjective Subjective Interval history: Summary: he patient notes he had some bladder discomfort yesterday evening and then developed overt left-sided flank pain which was primarily in the back but radiate to the front at about 2:00 a.m.. He also had a fever yesterday evening. He states this feels like an infection more than a kidney stone. He states his left kidney is non functioning per his urologist in [place]. 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 The patient has had stones before, this feels different. Imaging did reveal severe left-sided hydroureter which he attests is chronic. The patient is feeling better with antibiotics. He has had infections before which have all been bacterial without any mentioned of MDR. He did have 1 fungal infection about 7 years ago requiring caspofungin for 2 weeks. He denies any nausea. No chest pain, or shortness a breath. S: Feels 50% better today. Less pain. He would hematuria last night which is resolved. No fevers or chills. He is fatigued. Exam Vital Signs (past 8 hours): - 02/23/24 07:25 02/23/24 08:00 02/23/24 11:12 Temperature 97.3 F L Pulse Rate 81 88 Respiratory Rate 19 16 Blood Pressure 139/83 Pulse Oximetry 95 96 Oxygen Delivery Method Room Air Room Air Oxygen Flow Rate 0 Oxygen Delivery Method Room Air Oxygen Flow Rate 0 Narrative Exam Narrative: NAD, alert and oriented. Fluent speech. Lungs are clear, normal rate and effort. Heart is regular, no murmur gallop or rub. Abdomen is soft, non distended. Extremities are free of edema. Objective Labs 02/23/24 05:28 02/23/24 05:28 Labs: Laboratory Results - last 24 hr 02/23/24 05:28 WBC 11.9 H RBC 3.77 L Hgb 12.6 L Hct 36.7 L MCV 97.4 MCH 33.3 MCHC 34.2 RDW 14.1 Plt Count 199 Neut % (Auto) 82.5 H Lymph % (Auto) 7.5 L [place] % (Auto) 9.9 Eos % (Auto) 0.0 L Baso % (Auto) 0.1 Neut # (Auto) 9800 H Lymph # (Auto) 900 L [place] # (Auto) 1200 H Eos # (Auto) 0 Baso # (Auto) 0 Sodium 133 L Potassium 5.3 H Chloride 108 H Carbon Dioxide 18 L BUN 32 H Creatinine 2.80 H Estimated GFR 25 L BUN/Creatinine Ratio 11.4 Glucose 129 H D Calcium 8.1 L PFSH Medical History No significant medical problems Social History household members: spouse Smoking Status: Never smoker Assessment & Plan Assessment & Plan narrative: 1. Left flank pain with probable pyelonephritis, present on admission and improving. Ur culture with gpc, pending. 2. KATHERINE, present on admission and improving. Cr 2.8 today from 3.2. 3. Chronic kidney disease stage 3 to 4, present on admission and active. Baseline Cr 2.8. 4. Chronic left hydroureter and probable left kidney dysfunction, present on admission and active. 5. 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 PLAN: -continue IV antibiotics, blood and urine cultures pending. -continue IV fluids and monitor renal function with hope to return to normal baseline renal function. -pain control with IV Dilaudid and oral oxycodone. The patient was full resuscitation. His proxy decision maker is his , who lives in [place]. He was admitted to observation status, with a 1 midnight anticipated need for hospital services. He will require a 2nd night of care for ongoing IV antibiotics.
[2024-02-23 16:25] VITALS: PULSE 86; RESP 18; O2SAT 95
[2024-02-23 17:00] VITALS: BP 150/98; PULSE 89; RESP 16; TEMP 36.6; O2SAT 94
[2024-02-24 00:32] VITALS: BP 147/95; PULSE 100; RESP 18; TEMP 37; O2SAT 95
[2024-02-24] MEDS: SODIUM CHLORIDE 0.45% 1,000 ML 100 ML IV (02:23)
[2024-02-24] MEDS: ALBUTEROL 2.5 MG/3 ML NEB (ADULT) INH (02:29)
[2024-02-24] MEDS: BENZONATATE 100 MG CAPSULE PO (02:40)
[2024-02-24 04:21] VITALS: BP 140/91; PULSE 98; RESP 16; TEMP 36.9; O2SAT 100
[2024-02-24 05:00] LABS: Add Manual Diff / Slide Review NO; Basophils Absolute Auto 0 /uL (0-100); Eosinophils Absolute Auto 100 /uL (0-450); Hemoglobin 12.2 g/dL (13.5-17.5); Lymphocytes Absolute Auto 1000 /uL (1100-4500); Lymphocytes Percent Auto 14.4 % (25-40); Mean Corpuscular HGB Conc 34.8 % (30-36); Mean Corpuscular Volume 97.8 fL (80-100); Monocytes Absolute Auto 800 /uL (0-900); Monocytes Percent Auto 11.4 % (3-14); Neutrophils Absolute Auto 5000 /uL (1500-7000); Neutrophils Percent Auto 72.2 % (50-75); Platelet Count 181 X10^3/uL (150-400); Red Blood Cell Count 3.58 X10^6/uL (4.5-5.9); Red Cell Distribution Width 14.3 % (11.6-14.8); White Blood Cell Count 6.9 X10^3/uL (4.5-11.0)
[2024-02-24 05:16] LABS: BUN Creatinine Ratio 11.6 (6-22); Blood Urea Nitrogen 31 mg/dL (9-20); Calcium 8.1 mg/dL (8.4-10.2); Carbon Dioxide 18 mmol/L (22-32); Chloride 109 mmol/L (98-107); Estimated Glomerular Filt Rate 26 mL/min (>60); Glucose 114 mg/dL (80-110); HEMOLYSIS < 15 (0-50); Potassium 4.5 mmol/L (3.4-5.1); Sodium 136 mmol/L (137-145)
[2024-02-24] MEDS: LEVOTHYROXINE 100 MCG TABLET 200 MCG PO (06:04)
[2024-02-24] MEDS: LEVOTHYROXINE 25 MCG TABLET PO (06:04)
[2024-02-24] MEDS: PANTOPRAZOLE DR 40 MG TABLET PO (06:04)
[2024-02-24] MEDS: cefTRIAXone 1,000 MG in SODIUM CHLORIDE 0.9% 100 ML 200 MG IV (06:05)
[2024-02-24 07:22] VITALS: PULSE 104; RESP 18; O2SAT 96
[2024-02-24] MEDS: ALBUTEROL/IPRATROPIUM 3 ML AMPUL INH ×2 (07:22→11:10)
[2024-02-24 08:00] VITALS: BP 146/98; PULSE 100; RESP 18; TEMP 36.9; O2SAT 97
[2024-02-24] MEDS: VALSARTAN 80 MG TABLET 160 MG PO (08:30)
[2024-02-24] MEDS: FOLIC ACID 1 MG TABLET PO (08:30)
[2024-02-24 11:10] VITALS: PULSE 100; RESP 14; O2SAT 98
--- NOTE | 2024-02-24 12:23 | P.DS_ITS ---
History of Present Illness History of Present Illness Date Patient Seen: 02/24/24 Time Patient Seen: 12:23 Chief complaint: chills, severe back pain Narrative: From ED doctor: 63-year-old male with history of sarcoidosis, frequent cough, prior kidney stones, prior diverticulitis, renal insufficiency complains of left flank pain onset 9:00 p.m. last night, no trauma injury or new activities, some radiation of the pain anteriorly left lower quadrant this morning. He also thinks he has had kidney stones before, but this feels different. He believes his creatinine is in the 2-2.5 range, has not been on dialysis. He has frequent coughing, wheezing, uses frequent SVN at home, including earlier this evening. No fevers or chills. No nausea or vomiting. No diarrhea. No black or red stools. S: The patient notes he had some bladder discomfort yesterday evening and then developed overt left-sided flank pain which was primarily in the back but radiate to the front at about 2:00 a.m.. He also had a fever yesterday evening. He states this feels like an infection more than a kidney stone. He states his left kidney is non functioning per his urologist in [place]. 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 The patient has had stones before, this feels different. Imaging did reveal severe left-sided hydroureter which he attests is chronic. The patient is feeling better with antibiotics. He has had infections before which have all been bacterial without any mentioned of MDR. He did have 1 fungal infection about 7 years ago requiring caspofungin for 2 weeks. He denies any nausea. No chest pain, or shortness a breath. Discharge Providers Provider Date of admission: 02/22/24 08:05 Discharge Date: 02/24/24 Primary care physician: Aaron Cardenas DO Discharge provider: Murali Esparza DO Summary Hospital Course Discharge Diagnosis: 1. Left flank pain with probable pyelonephritis, present on admission and improving. Ur culture with gpc, pending. 2. KATHERINE, present on admission and improving. Cr 2.8 today from 3.2. 3. Chronic kidney disease stage 3 to 4, present on admission and active. Baseline Cr 2.8. 4. Chronic left hydroureter and probable left kidney dysfunction, present on admission and active. 5. 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 Hospital Course: This is a 63 year old male with chronic L hydroureter and prior bladder reconstruction who was admitted with KATHERINE and left flank pain concerning for possible pyelonephritis. Urine cultures grew staph epidermidis. He leukocytosis however improved with only ceftriaxone given during admission. Given discordant data from cultures and improvement with ceftriaxone, he was discharged on oral linezolid and cefdinir upon discharge for another week after discharge given his improvement. Cr improved to 2.67 from 3.2 on admission. No other changes to his home medications were recommended on discharge. Time Spent with Patient Time spent: Greater than 30 minutes Exam Vital Signs (past 8 hours): - 02/24/24 07:22 02/24/24 08:00 02/24/24 11:10 Temperature 98.4 F Pulse Rate 104 H 100 H 100 H Respiratory Rate 18 18 14 Blood Pressure 146/98 H Pulse Oximetry 96 97 98 Oxygen Delivery Method Room Air Room Air Oxygen Flow Rate 0 0 Fraction of Inspired Oxygen 21 Fraction of Inspired Oxygen 21 SaO2/FiO2 Ratio 457 Oxygen Delivery Method Room Air Oxygen Flow Rate 0 Narrative Exam Narrative: NAD, alert and oriented. Fluent speech. Lungs are clear, normal rate and effort. Heart is regular, no murmur gallop or rub. Abdomen is soft, non distended. Extremities are free of edema. Objective Labs 02/24/24 04:38 02/24/24 04:38 Labs: Laboratory Results - last 24 hr 02/24/24 04:38 WBC 6.9 RBC 3.58 L Hgb 12.2 L Hct 35.0 L MCV 97.8 MCH 34.0 MCHC 34.8 RDW 14.3 Plt Count 181 Neut % (Auto) 72.2 Lymph % (Auto) 14.4 L [place] % (Auto) 11.4 Eos % (Auto) 2.0 Baso % (Auto) 0.0 Neut # (Auto) 5000 Lymph # (Auto) 1000 L [place] # (Auto) 800 Eos # (Auto) 100 Baso # (Auto) 0 Sodium 136 L Potassium 4.5 Chloride 109 H Carbon Dioxide 18 L BUN 31 H Creatinine 2.67 H Estimated GFR 26 L BUN/Creatinine Ratio 11.6 Glucose 114 H Calcium 8.1 L PFSH Medical History No significant medical problems Social History household members: spouse Smoking Status: Never smoker Discharge Plan Discharge Plan Patient Disposition: Home Provider Discharge Comment: You were admitted to the hospital with an infection in your kidney, continue antibiotics for another 7 days after discharge. Discharge orders & Medications Prescriptions: New cefdinir 300 mg capsule 300 mg PO BID 7 Days Qty: 14 0RF linezolid 600 mg tablet 600 mg PO BID 7 Days Qty: 14 0RF benzonatate 100 mg capsule 100 mg PO TID PRN (Reason: cough) 10 Days Qty: 30 0RF Continued omeprazole 40 mg capsule,delayed release(DR/EC) 40 mg PO DAILY folic acid 1 mg tablet 1 mg PO DAILY valsartan 160 mg tablet 160 mg PO DAILY tiotropium bromide [Spiriva with HandiHaler] 18 mcg capsule, w/inhalation device 18 mcg inhalation PRN PRN (Reason: sob) levothyroxine 200 mcg Tablet 200 mcg PO DAILY levothyroxine 25 mcg Tablet 25 mcg PO DAILY ipratropium-albuterol 0.5 mg-3 mg(2.5 mg base)/3 mL solution for nebulization 3 ml inhalation Q6H PRN (Reason: wheezing) Follow up/Referrals: Miscellaneous,Doctor, [Non-Staff] - Aaron Cardenas, [Primary Care Provider] - Diet/Activity/Treatments Diet: Diet as Tolerated and Regular Activity: As tolerated, no restrictions Visit Report/Discharge Packet Instructions: Linezolid, Cefdinir Stand Alone Forms: Patient Portal/API, Stroke Signs & Symptoms Discharge Data Primary Care Provider: Aaron Cardenas Attending Provider: Kunal Winter Admit Date/Time: 02/22/24 08:05
== END 2024-02-24 13:00 | disposition home or self-care (01) ==
LOC: ED 07:44 → AC 08:06
PROVIDERS: Admitting Provider Hospitalist; Emergency Provider Emergency Medicine; Family Provider Family Medicine; PCP Student in an Organized Health Care Education/Training Program; Referring Provider Emergency Medicine; Visit Provider Hospitalist
DX: R10.9 Unspecified abdominal pain (principal); N17.9 Acute kidney failure, unspecified; N18.30 Chronic kidney disease, stage 3 unspecified; N13.4 Hydroureter; Z11.52 Encounter for screening for COVID-19
CPT/HCPCS: 0241U; 36415; 71046; 74176; 80048; 80053; 81001; 81003; 83690; 85025; 87040; 87077; 87086; 87186; 93005; 94640; 94762; 96361; 96365; 96366; 96375; 99285; G0378; J0696; J1170; J2405; J2919; J7050; J7613

== ENCOUNTER 2024-10-01 20:25 | Emergency (ER) | payer OTHER, SELFPAY ==
[2024-02-22 09:12] VITALS: BMI 26.7
[2024-10-01] VITALS (8 sets, daily range): BP systolic 74–119; BP diastolic 45–60; PULSE 75–88; RESP 18; TEMP 36.9; O2SAT 93–95; BMI 25.7
--- NOTE | 2024-10-01 20:55 | DI.RAD.S_ITS ---
PROCEDURE: XR HIP W PEL IF DONE LT 2V INDICATIONS: fall, shortening of leg TECHNIQUE: AP pelvis with lateral view of the left hip. COMPARISON: [facility], CT, CT ABDOMEN PELVIS WO CON, 02/22/2024, 4:48. FINDINGS: Bones: No acute fractures or dislocations. Pelvic ring appears intact. No suspicious bony lesions. Moderate bilateral hip osteoarthrosis. Mild degenerative changes in the included spine. Soft tissues: The visualized bowel gas pattern is normal. No suspicious soft tissue calcifications. IMPRESSION: No acute osseous abnormality. If symptoms persist or if there is continued clinical concern, cross-sectional imaging such as MRI or CT may be helpful for further evaluation. Approved by: Michael Hamm M.D. on 10/01/2024 at 21:46
[2024-10-01] MEDS: MORPHINE 4 MG/ML INJ IV (21:52)
[2024-10-01 22:13] LABS: BUN Creatinine Ratio 12.8 (6-22); Blood Urea Nitrogen 42 mg/dL (9-20); Calcium 7.9 mg/dL (8.4-10.2); Carbon Dioxide 19 mmol/L (22-32); Chloride 104 mmol/L (98-107); Estimated Glomerular Filt Rate 20 mL/min (>60); Glucose 91 mg/dL (80-110); HEMOLYSIS < 15 (0-50); Potassium 3.9 mmol/L (3.4-5.1); Sodium 136 mmol/L (137-145)
[2024-10-01 22:14] LABS: Add Manual Diff / Slide Review NO; Basophils Absolute Auto 100 /uL (0-100); Eosinophils Absolute Auto 400 /uL (0-450); Eosinophils Percent Auto 3.9 % (2-4); Hemoglobin 13.4 g/dL (13.5-17.5); Lymphocytes Absolute Auto 2000 /uL (1100-4500); Lymphocytes Percent Auto 20.1 % (25-40); Mean Corpuscular HGB Conc 34.3 % (30-36); Mean Corpuscular Hemoglobin 33.5 PG (26-34); Mean Corpuscular Volume 97.4 fL (80-100); Monocytes Absolute Auto 700 /uL (0-900); Monocytes Percent Auto 6.9 % (3-14); Neutrophils Absolute Auto 6700 /uL (1500-7000); Neutrophils Percent Auto 68.1 % (50-75); Platelet Count 251 X10^3/uL (150-400); Red Cell Distribution Width 13.7 % (11.6-14.8); White Blood Cell Count 9.9 X10^3/uL (4.5-11.0)
[2024-10-01 22:22] LABS: Ethanol (ETOH) 220 mg/dL
[2024-10-01] MEDS: ONDANSETRON 4 MG/2 ML INJ IV (22:54)
--- NOTE | 2024-10-01 23:07 | DI.CT.S_ITS ---
PROCEDURE: CT HIP LEFT WITHOUT CON INDICATIONS: Left hip pain, fall on ice TECHNIQUE: Noncontrast 3 mm axial sections acquired through the bony pelvis. Additional 3 mm axial sections acquired through the symptomatic hip joint, with coronal and sagittal reformats. For radiation dose reduction, the following was used: automated exposure control, adjustment of mA and/or kV according to patient size. COMPARISON: , CR, XR HIP W PEL IF DONE LT 2V, 10/01/2024, 20:58. FINDINGS: Image quality: Excellent. Bones: Nondisplaced fractures at the lateral aspect of the left superior pubic ramus, which may be comminuted, and at the midportion of the left inferior pubic ramus. Proximal femur is intact. The remaining pelvic bones and sacrum are intact. Soft tissues: No significant soft tissue metallic. No hip effusion. Mild subcutaneous edema lateral to the left hip. Bladder is mildly distended. Small bilateral fat containing inguinal hernias. Multiple diverticula in the colon without signs of acute diverticulitis. Small periumbilical hernia. The articular cartilages, ligaments, tendons are not well evaluated with CT. The visualized musculature is age-appropriate and bulk. IMPRESSION: Nondisplaced fractures of the left superior and inferior pubic rami. Approved by: Michael Hamm M.D. on 10/02/2024 at 0:49
[2024-10-01] MEDS: SODIUM CHLORIDE 0.9% 1,000 ML 1000 ML IV (23:21)
--- NOTE | 2024-10-01 23:55 | ED_ITS ---
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 Patient not on any blood thinners no head strike no LOC denies any other injury or pain. Patient does admit to drinking some alcohol prior to arrival was at dinner had 2 alcoholic drinks. Related Data Home Medications Medication Instructions Recorded Confirmed folic acid 1 mg tablet 1 mg PO DAILY 02/22/24 02/22/24 ipratropium 0.5 mg-albuterol 3 mg 3 ml inhalation Q6H PRN wheezing 02/22/24 02/22/24 (2.5 mg base)/3 mL nebulization soln levothyroxine 200 mcg tablet 200 mcg PO DAILY 02/22/24 02/22/24 levothyroxine 25 mcg tablet 25 mcg PO DAILY 02/22/24 02/22/24 omeprazole 40 mg capsule,delayed 40 mg PO DAILY 02/22/24 02/22/24 release tiotropium bromide 18 mcg capsule 18 mcg inhalation PRN PRN sob 02/22/24 02/22/24 with inhalation device (Spiriva with HandiHaler) valsartan 160 mg tablet 160 mg PO DAILY 02/22/24 02/22/24 Previous Rx's Medication Instructions Recorded ondansetron 4 mg disintegrating 4 mg PO TID PRN nausea and 10/02/24 tablet vomiting 5 days #15 tabs oxycodone-acetaminophen 5 mg-325 1 tab PO TID PRN pain 5 days #15 10/02/24 mg tablet (Percocet) tabs Allergies Allergy/AdvReac Type Severity Reaction Status Date / Time lisinopril [LISINOPRIL] Allergy Unknown COUGH Verified 12/26/19 16:34 Sulfa (Sulfonamide Allergy Unknown RASH Verified 12/26/19 16:34 Antibiotics) [SULFA (SULFONAMIDE ANTIBIOTICS)] NSAIDS (Non-Steroidal Allergy Verified 12/26/19 16:34 Anti-Inflamma Review of Systems Review of Systems Narrative: General: Denies fever, chills, weight loss HEENT: Denies headache, eye drainage, eye irritation, head trauma, sore throat, voice change Cardiovascular: Denies any chest pain, palpitations, shortness of breath, tachycardia Respiratory: Denies any shortness of breath, cough, wheeze, stridor GI/: Denies any abdominal pain, nausea, vomiting, diarrhea, bright red blood per rectum, melanotic stools, urinary frequency, urinary retention, dysuria, hematuria MSK: Positive left hip pain Skin: Denies any rashes, lesions, discoloration Neuro: Denies any headache, lightheadedness, dizziness, fainting, weakness Psych: Denies SI/HI Patient History Medical History (Updated 10/02/24 @ 01:10 by Murali Mccloud DO) No significant medical problems Social History household members: spouse Smoking Status: Never smoker Smoking Status: Never smoker alcohol intake frequency: a few times a week Alcohol type: hard liquor Exam Narrative Exam Narrative: General: Cooperative, comfortable, well-developed, not in acute distress HEENT: Normocephalic, atraumatic, PERRLA, normal sclera, eyelids normal, Neck: Active full range of motion, atraumatic Chest: Normal to inspection, negative crepitus, no overlying erythema ecchymosis Respiratory: Normal respiratory effort, not in acute respiratory distress, clear to auscultation bilaterally negative cough, wheeze, tachypnea, rhonchi, rales Cardiology: Regular rate rhythm negative gallop, murmur, rubs GI/: Normal to inspection, soft, nonrigid, no tenderness to palpation, exam deferred MSK: Patient with decreased passive active range of motion of the left hip secondary to pain however neurovascularly intact no crepitus no gross deformity noted no tenderness to palpation of the greater or lesser trochanter pain only elicited with active passive motion of the left hip Skin: No rashes lesions noted Neuro: Alert awake oriented x3, moves all 4 extremities spontaneously, cranial nerves intact, able to answer all questions appropriately follows commands appropriately Psych: Cooperative, negative suicidal or homicidal ideations Initial Vital Signs Initial Vital Signs: Vital Signs Temperature 98.5 F 10/01/24 20:38 Pulse Rate 88 10/01/24 20:38 Respiratory Rate 18 10/01/24 20:38 Blood Pressure 119/60 10/01/24 20:38 Pulse Oximetry 95 10/01/24 20:38 Oxygen Delivery Method Room Air 10/01/24 20:38 Course Orders Ordered: ED Orders 10/01/24 20:55 XR hip w pel if done LT 2V Stat 10/01/24 21:49 Basic Metabolic Panel Stat Ethanol (ETOH) Stat 10/01/24 22:06 Complete Blood Count AUTO DIFF Stat 10/01/24 23:07 Ct Hip left without con Stat Discontinued Medications Sodium Chloride (Normal Saline 0.9%) 1,000 mls @ 1,000 mls/hr IV BOLUS ONE Stop: 10/02/24 00:07 Last Infusion: 10/02/24 00:25 Dose: Infused Documented By: Admin: 10/01/24 23:21 Dose: 1,000 mls/hr Documented By: BEST Acetaminophen (Ofirmev) 1,000 mg in 100 mls @ 400 mls/hr IV NOW ONE Stop: 10/02/24 01:52 Last Infusion: 10/02/24 02:19 Dose: Infused Documented By: Admin: 10/02/24 01:43 Dose: 400 mls/hr Documented By: ARMOND Morphine Sulfate (Morphine 4 Mg/Ml Inj) 4 mg IV NOW ONE Stop: 10/01/24 21:42 Last Admin: 10/01/24 21:52 Dose: 4 mg Documented By: BEST Ondansetron HCl (Ondansetron 4 Mg/2 Ml Inj) 4 mg IV NOW ONE Stop: 10/01/24 22:53 Last Admin: 10/01/24 22:54 Dose: 4 mg Documented By: BEST Vital Signs Vital signs: Vital Signs - 8 hr 10/01/24 20:38 10/01/24 22:15 10/01/24 22:30 Temperature 98.5 F Pulse Rate 88 75 Respiratory Rate 18 18 Blood Pressure 119/60 Pulse Oximetry 95 93 95 Oxygen Delivery Method Room Air 10/01/24 23:01 10/01/24 23:03 10/01/24 23:03 Temperature Pulse Rate 80 80 Respiratory Rate Blood Pressure 74/46 L Pulse Oximetry 94 95 Oxygen Delivery Method 10/01/24 23:04 10/01/24 23:04 10/01/24 23:30 Temperature Pulse Rate 80 82 Respiratory Rate Blood Pressure 74/45 L Pulse Oximetry 95 93 Oxygen Delivery Method 10/01/24 23:33 10/01/24 23:33 10/02/24 00:00 Temperature Pulse Rate 81 86 Respiratory Rate Blood Pressure 102/57 L Pulse Oximetry 95 94 Oxygen Delivery Method 10/02/24 00:00 10/02/24 00:30 10/02/24 00:30 Temperature Pulse Rate 89 Respiratory Rate Blood Pressure 96/58 L 89/56 L Pulse Oximetry 96 Oxygen Delivery Method 10/02/24 01:00 10/02/24 01:00 Temperature Pulse Rate 86 Respiratory Rate 18 Blood Pressure 107/67 Pulse Oximetry 94 Oxygen Delivery Method MDM - Extremity Injury (Lower) Differential Diagnosis Differential diagnosis: Likely other (Fracture, contusion, sprain) Lab Data 10/01/24 22:06 10/01/24 21:49 Labs: Lab Results 10/01/24 10/01/24 Range/Units 21:49 22:06 WBC 9.9 (4.5-11.0) X10^3/uL RBC 4.00 L (4.5-5.9) X10^6/uL Hgb 13.4 L (13.5-17.5) g/dL Hct 39.0 L (41-53) % MCV 97.4 (80-100) fL MCH 33.5 (26-34) PG MCHC 34.3 (30-36) % RDW 13.7 (11.6-14.8) % Plt Count 251 (150-400) X10^3/uL Neut % (Auto) 68.1 (50-75) % Lymph % (Auto) 20.1 L (25-40) % [place] % (Auto) 6.9 (3-14) % Eos % (Auto) 3.9 (2-4) % Baso % (Auto) 1.0 (0-2) % Neut # (Auto) 6700 (0394-7081) /uL Lymph # (Auto) 2000 (6106-8913) /uL [place] # (Auto) 700 (0-900) /uL Eos # (Auto) 400 (0-450) /uL Baso # (Auto) 100 (0-100) /uL Sodium 136 L (137-145) mmol/L Potassium 3.9 (3.4-5.1) mmol/L Chloride 104 (98-107) mmol/L Carbon Dioxide 19 L (22-32) mmol/L BUN 42 H (9-20) mg/dL Creatinine 3.27 H (0.66-1.25) mg/dL Estimated GFR 20 L (>60) mL/min BUN/Creatinine Ratio 12.8 (6-22) Glucose 91 (80-110) mg/dL Calcium 7.9 L (8.4-10.2) mg/dL Ethyl Alcohol 220 H ( - 10) mg/dL Imaging Data Extremity x-ray #1: Radiologist's Impression: [address] [address] XRay Report Signed Patient: Duc Lindo MR#: [id number] : 1960 Acct:[id number] Age/Sex: 64 / M Date of Service: 10/01/24 Loc: ED Accession Number: [id number] Procedure: XR hip w pel if done LT 2V Ordering Provider: Murali Mccloud D.O. PROCEDURE: XR HIP W PEL IF DONE LT 2V INDICATIONS: fall, shortening of leg TECHNIQUE: AP pelvis with lateral view of the left hip. COMPARISON: [facility], CT, CT ABDOMEN PELVIS WO CON, 02/22/2024, 4:48. FINDINGS: Bones: No acute fractures or dislocations. Pelvic ring appears intact. No suspicious bony lesions. Moderate bilateral hip osteoarthrosis. Mild degenerative changes in the included spine. Soft tissues: The visualized bowel gas pattern is normal. No suspicious soft tissue calcifications. IMPRESSION: No acute osseous abnormality. If symptoms persist or if there is continued clinical concern, cross-sectional imaging such as MRI or CT may be helpful for further evaluation. CT left hip: Radiologist's Impression: [address] [address] [address] Scan Report Signed Patient: Duc Lindo MR#: [id number] : 1960 Acct:[id number] Age/Sex: 64 / M Date of Service: 10/01/24 Loc: ED Accession Number: [id number] Procedure: Ct Hip left without con Ordering Provider: Murali Mccloud D.O. PROCEDURE: CT HIP LEFT WITHOUT CON INDICATIONS: Left hip pain, fall on ice TECHNIQUE: Noncontrast 3 mm axial sections acquired through the bony pelvis. Additional 3 mm axial sections acquired through the symptomatic hip joint, with coronal and sagittal reformats. For radiation dose reduction, the following was used: automated exposure control, adjustment of mA and/or kV according to patient size. COMPARISON: [facility], CR, XR HIP W PEL IF DONE LT 2V, 10/01/2024, 20:58. FINDINGS: Image quality: Excellent. Bones: Nondisplaced fractures at the lateral aspect of the left superior pubic ramus, which may be comminuted, and at the midportion of the left inferior pubic ramus. Proximal femur is intact. The remaining pelvic bones and sacrum are intact. Soft tissues: No significant soft tissue metallic. No hip effusion. Mild subcutaneous edema lateral to the left hip. Bladder is mildly distended. Small bilateral fat containing inguinal hernias. Multiple diverticula in the colon without signs of acute diverticulitis. Small periumbilical hernia. The articular cartilages, ligaments, tendons are not well evaluated with CT. The visualized musculature is age- appropriate and bulk. IMPRESSION: Nondisplaced fractures of the left superior and inferior pubic rami. MDM Narrative Medical decision making narrative: 64-year-old male history of sarcoid CKD comes into the ED for left hip pain after mechanical trip and fall going down his IC driveway. Patient had negative hip x-ray but had pain and difficulty standing ambulating therefore CT scan was obtained which showed pubic rami fracture of the superior inferior aspect. 2.7.25 @ 0110: Discussed case with orthopedic surgeon Dr. Montalvo, states that this pubic rami fracture is nonoperative, states that patient should follow up outpatient with clinic, states so long as patient is able to manage pain can be discharged home however if unable to would require admission for pain management PT/OT evaluation. 0227: Patient was able to stand bear weight and walk with a walker here in the emergency department. Patient was given strict return precautions and informed to follow up with PCP and orthopedic surgery in outpatient setting, understands and agrees with being discharged home with outpatient follow up. Discharge Plan Departure Patient Disposition: Home Clinical Impression: Closed fracture of pubic ramus Activity Restrictions/Additional Instructions: Please follow up with Orthopedic surgery in a outpatient setting Please read the discharge instructions sheet carefully and bring all papers to all doctor follow-up visits, as it may contain information that your doctor may want to see. Disease processes change and evolve, if your symptoms worsen or if you develop any new symptoms that are concerning to you please return for evaluation. Your evaluation today does not show any evidence of any life- threatening/serious illnesses requiring admission to the hospital or surgery. Please follow-up with your doctor for re-evaluation in approximately 1 day. Seek immediate medical attention for any worrisome symptoms. *If you do not have a primary care provider please contact the [facility] Resource line at [phone]. They will ask some questions about your medical history and help get you set up with a doctor in the community. Prescriptions: New oxycodone-acetaminophen [Percocet] 5-325 mg tablet 1 tab PO TID PRN (Reason: pain) 5 Days Qty: 15 0RF ondansetron 4 mg tablet,disintegrating 4 mg PO TID PRN (Reason: nausea and vomiting) 5 Days Qty: 15 0RF No Action omeprazole 40 mg capsule,delayed release(DR/EC) 40 mg PO DAILY folic acid 1 mg tablet 1 mg PO DAILY valsartan 160 mg tablet 160 mg PO DAILY tiotropium bromide [Spiriva with HandiHaler] 18 mcg capsule, w/inhalation device 18 mcg inhalation PRN PRN (Reason: sob) levothyroxine 200 mcg Tablet 200 mcg PO DAILY levothyroxine 25 mcg Tablet 25 mcg PO DAILY ipratropium-albuterol 0.5 mg-3 mg(2.5 mg base)/3 mL solution for nebulization 3 ml inhalation Q6H PRN (Reason: wheezing) Referrals: Aaron Cardenas DO [Primary Care Provider] - Stand Alone Forms: Patient Portal/API/Survey
[2024-10-02] VITALS: BP 96/58; PULSE 86; O2SAT 94
[2024-10-02 00:30] VITALS: BP 89/56; PULSE 89; O2SAT 96
--- NOTE | 2024-10-02 00:45 | PC.NURSE ---
BP dipped to 75/45 at 2300, provider notified and 1L bolus ordered and given. BP up to 102/57 at 2330, provider stated the BP may be low due to pain meds and ETOH that pt had earlier. ETOH level was 220 at 2150. BP 89/56 with map of 65 at 0030. Provider updated.
[2024-10-02 01:00] VITALS: BP 107/67; PULSE 86; RESP 18; O2SAT 94
[2024-10-02] MEDS: ACETAMINOPHEN IV 1,000 MG/100 ML VIAL 400 MG IV (01:43)
--- NOTE | 2024-10-02 02:21 | PC.NURSE ---
Pt states difficulty and increased pain during attempt to ambulate, states I can't walk. Taken by wheel chair to restroom. Dr. Mccloud made aware.
[2024-10-02 02:27] VITALS: BP 90/60; PULSE 96; RESP 18; O2SAT 94
--- NOTE | 2024-10-02 02:29 | PC.NURSE ---
walked with walker from bed to door, only bearing some weight on the affected leg. I then grabbed a wheelchair to assist him to the bathroom since it was further down the [place].
== END 2024-10-02 02:45 | disposition home or self-care (01) ==
PROVIDERS: Emergency Provider Student in an Organized Health Care Education/Training Program; Family Provider Family Medicine; PCP Student in an Organized Health Care Education/Training Program
DX: S32.512A Fracture of superior rim of left pubis, initial encounter for closed fracture (principal); D86.9 Sarcoidosis, unspecified; N18.9 Chronic kidney disease, unspecified; W00.0XXA Fall on same level due to ice and snow, initial encounter
CPT/HCPCS: 36415; 73502; 73700; 80048; 80320; 85025; 96361; 96365; 96375; 99283; 99284; J0131; J2270; J2405